=== PATIENT | male | born 1945 | race Caucasian/White ===

== ENCOUNTER 2016-11-01 14:52 | Observation (INO) | payer OTHER ==
[~2016-11-01] VITALS: Ht 180.3 cm; Wt 101.0 kg
[~2016-11-01 14:52] MED LIST: ACET-1311 PO; CARB200T PO; CLOP1TAB15 PO; COLC0.6T54 PO; DUTA0.5C PO; FENO145T26 PO; FERR1TAB61 PO; FLM4 PO; FRS/40 PO; FURO80TA63 PO; LISI-461 PO; MCRK20 PO; METO-217 PO; METO100T44 PO; MGNO400 PO; NRV5 PO; NTRSLP4 SL; PANT40TA PO; SPIR25TA PO
--- NOTE | 2016-11-01 15:44 | DIAGNOSTIC IMAGING REPORT ---
CHEST ONE VIEW PORTABLE CLINICAL HISTORY: sob dyspnea COMPARISON STUDY: 02/26/2016 FINDINGS: Mild increase in cardiac size. Chronic fullness the pulmonary vasculature. Potential developing infiltrate right base. IMPRESSION: Potential developing infiltrate right base. Mild cardia megaly. Electronically signed by: Rolando Liu M.D. 11/01/2016 3:41 PM Dictated Date/Time: 11/01/2016 3:40 PM
[2016-11-01] MEDS ORDERED: NTRGSL/4 UT (15:45)
[2016-11-01] MEDS ORDERED: MAGN400T6 PO (15:45)
[2016-11-01] MEDS ORDERED: ATOR-22 PO (15:45)
[2016-11-01] MEDS ORDERED: POTA20TA13 PO (15:45)
[2016-11-01] MEDS ORDERED: AMLO-110 PO (15:45)
[2016-11-01] MEDS ORDERED: CHOL100010 PO (15:45)
[2016-11-01] MEDS ORDERED: IRON1TAB11 PO (15:45)
[2016-11-01] MEDS ORDERED: PANT40TA PO (15:45)
[2016-11-01] MEDS ORDERED: LISI-461 PO (15:45)
[2016-11-01 16:16] LABS: BASO % 0.7 %; BASO ABS # 0.03 K/uL (0-0.2); COMPLETE YES; EOS % 2.2 %; HEMATOCRIT 38.7 % (42-52); IG% 0.2 %; LYMPH % 17.2 %; LYMPH ABS # 0.78 K/uL (1.2-3.4); MEAN CELL VOLUME 96.3 fL (80-100); MEAN CORPUSCULAR HEMOGLOBIN 31.3 pg (25-34); MEAN CORPUSCULAR HGB CONC 32.6 g/dl (32-36); MEAN PLATELET VOLUME 12.5 fL (7.4-10.4); MONO % 12.8 %; NEUT % 66.9 %; PLATELET COUNT 146 K/uL (130-400); RED BLOOD COUNT 4.02 M/uL (4.7-6.1); WHITE BLOOD COUNT 4.54 K/uL (4.8-10.8)
[2016-11-01 16:32] LABS: INR 1.2 (0.9-1.1); PROTHROMBIN TIME (PATIENT) 12.8 SECONDS (9.0-12.0)
[2016-11-01 16:56] LABS: ALB/GLOB RATIO 1.1 (0.9-2); BUN/CREATININE RATIO 17.1 (10-20); CALCIUM 8.5 mg/dl (8.5-10.1); CKMB/CK RATIO 2.1 (0-3.0); CREATININE 0.87 mg/dl (0.60-1.40); POTASSIUM 3.6 mmol/L (3.5-5.1)
--- NOTE | 2016-11-01 18:14 | EMERGENCY ROOM VISIT NOTE ---
History Report prepared by Jenni: Abdi Booth Under the Supervision of: Dr. Jacky Banerjee D.O. First contact with patient: 15:04 Chief Complaint: SHORTNESS OF BREATH Stated Complaint: SOB Nursing Triage Summary: Increased SOB. Patient states he has stopped taking his Lasix "It is a pain". Pt. was seen by Dr. Ayala and referred here today. History of Present Illness The patient is a 71 year old male who presents to the Emergency Room with complaints of worsening shortness of breath beginning several weeks ago. He notes he is unable to walk far distances without getting short of breath. He denies having any cough or pain with his shortness of breath, and reports only getting short of breath with exertion, not rest. The patient recently had a head cold about 2 to 3 weeks ago and his symptoms were resolved with 2 courses of antibiotics. He has had similar shortness of breath before, and had stents placed 4 years ago at [facility] which helped relieve his symptoms. He has been to this ER in the past for bleeding from taking Coumadin and Plavix. He still takes Plavix but no longer takes the Coumadin. He adds that he has a history of nerve damage in his left leg from a past fall. The patient follows with Dr. Ayala. Source of History: patient Onset: several weeks ago Position: other (lungs) Quality: other (shortness of breath) Timing: worsening Modifying Factors (Worsening): exertion Modifying Factors (Relieving): rest Associated Symptoms: No cough Review of Systems See HPI for pertinent positives & negatives. A total of 10 systems reviewed and were otherwise negative. Past Medical & Surgical Medical Problems: (1) Atrial fibrillation (2) Bimalleolar ankle fracture (3) BPH (benign prostatic hypertrophy) (4) Coronary artery disease (5) Dyslipidemia (6) Gout (7) History of peptic ulcer disease (8) Hypertension (9) Sleep apnea (10) Trigeminal neuralgia Surgical Problems: (1) Status post cardiac catheterization (2) Status post coronary artery stent placement (3) Status post total knee replacement Family History Bipolar disorder MOTHER Myocardial infarction FATHER Social History Smoking Status: Never Smoker Alcohol Use: none Drug Use: none Marital Status: Housing Status: lives with significant other Occupation Status: retired Current/Historical Medications Scheduled Amlodipine (Norvasc), 5 MG PO QAM Atorvastatin (Lipitor), 20 MG PO DAILY Carbamazepine (Tegretol), 200 MG PO QID Cholecalciferol (Vitamin D), 1,000 UNITS PO DAILY Clopidogrel (Plavix), 75 MG PO QAM Colchicine (Colchicine), 0.6 MG PO QAM Dutasteride (Avodart), 0.5 MG PO DAILY@1730 Fenofibrate (Tricor ), 145 MG PO QAM Furosemide (Lasix), 40 MG PO Q2D Furosemide (Lasix), 80 MG PO Q2D Iron-Vitamin C (Fe C Tab 100-250 mg), Unknown Dose PO BID Lisinopril (Lisinopril), 10 MG PO QAM Magnesium Oxide (Mag-Ox), 400 MG PO QAM Metoprolol Succ (Toprol Xl) (Toprol-Xl ), 100 MG PO DAILY Metoprolol Succinate (Toprol Xl), 50 MG PO DAILY Pantoprazole (Protonix), 40 MG PO BID Potassium Chloride Microencaps (Potassium Chloride Er), 20 MEQ PO DAILY Spironolactone (Aldactone), 12.5 MG PO QAM Tamsulosin HCl (Tamsulosin HCl), 0.4 MG PO HS Scheduled PRN Acetaminophen (Tylenol), 650 MG PO Q4 PRN for Pain Nitroglycerin (Nitrostat), 0.4 MG UT PRN PRN for Chest Pain Allergies Coded Allergies: No Known Allergies (Unverified , 11/01/16) Physical Exam Vital Signs Date Time Temp Pulse Resp B/P Pulse Ox O2 Delivery O2 Flow Rate FiO2 11/01/16 16:50 72 25 156/105 91 Room Air 11/01/16 15:28 72 11/01/16 15:25 Room Air 94 11/01/16 15:25 94 Room Air 11/01/16 14:53 67 24 188/97 97 Physical Exam CONSTITUTIONAL/VITAL SIGNS: Reviewed / noted above. GENERAL: Non-toxic in appearance. INTEGUMENTARY: Warm, dry, and [place]. HEAD: Normocephalic. EYES: without scleral icterus or trauma. ENT/OROPHARYNX: clear and moist. LYMPHADENOPATHY/NECK: Is supple without lymphadenopathy or meningismus. RESPIRATORY: Lungs clear and equal. CARDIOVASCULAR: Regular rate and rhythm. GI/ABDOMEN: Soft and nontender. No organomegaly or pulsatile mass. No rebound or guarding. Normal bowel sounds. EXTREMITIES: Pedal edema bilaterally. BACK: No CVA tenderness. NEUROLOGICAL: Intact without focal deficits. PSYCHIATRIC: normal affect. MUSCULOSKELETAL: Normally developed with good muscle tone. Medical Decision & Procedures ER Provider Diagnostic Interpretation: Radiology results as stated below per my review and radiologist interpretation: CHEST ONE VIEW PORTABLE FINDINGS: Mild increase in cardiac size. Chronic fullness the pulmonary vasculature. Potential developing infiltrate right base. IMPRESSION: Potential developing infiltrate right base. Mild cardia megaly. Electronically signed by: Rolando Liu M.D. 11/01/2016 3:41 PM Dictated Date/Time: 11/01/2016 3:40 PM Laboratory Results 11/01/16 15:48 Red Blood Count 4.02, Mean Corpuscular Volume 96.3, Mean Corpuscular Hemoglobin 31.3, Mean Corpuscular Hemoglobin Concent 32.6, Mean Platelet Volume 12.5, Neutrophils (%) (Auto) 66.9, Lymphocytes (%) (Auto) 17.2, Monocytes (%) (Auto) 12.8, Eosinophils (%) (Auto) 2.2, Basophils (%) (Auto) 0.7, Neutrophils # (Auto ) 3.04, Lymphocytes # (Auto) 0.78, Monocytes # (Auto) 0.58, Eosinophils # (Auto ) 0.10, Basophils # (Auto) 0.03 11/01/16 15:48 Test 11/01/16 15:48 White Blood Count 4.54 K/uL (4.8-10.8) Red Blood Count 4.02 M/uL (4.7-6.1) Hemoglobin 12.6 g/dL (14.0-18.0) Hematocrit 38.7 % (42-52) Mean Corpuscular Volume 96.3 fL (80-100) Mean Corpuscular Hemoglobin 31.3 pg (25-34) Mean Corpuscular Hemoglobin Concent 32.6 g/dl (32-36) Platelet Count 146 K/uL (130-400) Mean Platelet Volume 12.5 fL (7.4-10.4) Neutrophils (%) (Auto) 66.9 % Lymphocytes (%) (Auto) 17.2 % Monocytes (%) (Auto) 12.8 % Eosinophils (%) (Auto) 2.2 % Basophils (%) (Auto) 0.7 % Neutrophils # (Auto) 3.04 K/uL (1.4-6.5) Lymphocytes # (Auto) 0.78 K/uL (1.2-3.4) Monocytes # (Auto) 0.58 K/uL (0.11-0.59) Eosinophils # (Auto) 0.10 K/uL (0-0.5) Basophils # (Auto) 0.03 K/uL (0-0.2) RDW Standard Deviation 55.9 fL (36.4-46.3) RDW Coefficient of Variation 15.9 % (11.5-14.5) Immature Granulocyte % (Auto) 0.2 % Immature Granulocyte # (Auto) 0.01 K/uL (0.00-0.02) Prothrombin Time 12.8 SECONDS (9.0-12.0) Prothromb Time International Ratio 1.2 (0.9-1.1) Activated Partial Thromboplast Time 26.8 SECONDS (21.0-31.0) Partial Thromboplastin Ratio 1.0 Anion Gap 8.0 mmol/L (3-11) Est Creatinine Clear Calc Drug Dose 96.4 ml/min Estimated GFR () 99.2 Estimated GFR (Non- 85.6 BUN/Creatinine Ratio 17.1 (10-20) Calcium Level 8.5 mg/dl (8.5-10.1) Total Bilirubin 1.0 mg/dl (0.2-1) Aspartate Amino Transf (AST/SGOT) 28 U/L (15-37) Alanine Aminotransferase (ALT/SGPT) 23 U/L (12-78) Alkaline Phosphatase 38 U/L (45-117) Total Creatine Kinase 100 U/L (39-308) Creatine Kinase MB 2.1 ng/ml (0.5-3.6) Creatine Kinase MB Ratio 2.1 (0-3.0) Troponin I 0.031 ng/ml (0-0.045) Pro-B-Type Natriuretic Peptide 4484 pg/ml (0-900) Total Protein 6.6 gm/dl (6.4-8.2) Albumin 3.5 gm/dl (3.4-5.0) Globulin 3.1 gm/dl (2.5-4.0) Albumin/Globulin Ratio 1.1 (0.9-2) Laboratory results as stated above per my review. ECG Indication: SOB/dyspnea Rate (beats per minute): 78 Rhythm: atrial fibrillation Findings: ST depression (Inferior), T-wave inversion (Inferior) Comparison ECG Date: 02/26/16 Change: no significant change ED Course 1537: Previous medical records were reviewed. The patient was evaluated in room A10. A complete history and physical examination was performed. 1730: Discussed the patient's case with Veronika Alcantara PA-C. The patient will be evaluated for further treatment and disposition. Medical Decision the differential was considered includes acute myocardial infarction, acute coronary syndrome, myocarditis, pericarditis, pericardial effusions /tamponad, esophageal perforation, pulmonary embolism, pneumonia, pneumothorax, cardiomyopathy, congestive heart, anemia , COPD/asthma exacerbation. This is a 71-year-old male who presents to the ED with a chief complaint of shortness of breath for the past couple of months. The patient reports exertional dyspnea similar to prior symptoms that he had prior to a cardiac catheterization and stent placement 4 years ago. The patient recently has had some cough and cold symptoms and had 2 courses of antibiotics and now his cold symptoms have improved. He denies any other symptoms and is currently symptomatic. His vital signs are stable. He is not hypoxic or febrile. His physical exam was unremarkable. Chest x-ray reveals a possible small right lower lobe infiltrate. This is likely resolving as clinically his symptoms have improved with regards to his cold symptoms. CBC was unremarkable. Chemistry panel was unremarkable. Troponin was negative. BNP is 4484. EKG shows A. fib which is similar to previous EKGs. Because of the patient's anginal-like symptoms, the patient was seen by the hospitalist for further inpatient evaluation. He has not been treated for pneumonia as clinically he does not have pneumonia at this time. Consults Time Called: 1729 Consulting Physician: Veronika Alcantara PA-C, [facility] Returned Call: 1730 Discussed the patient's case with Kisha Dias PA-C. The patient will be evaluated for further treatment and disposition. Impression Primary Impression: Unstable angina Scribe Attestation The scribe's documentation has been prepared under my direction and personally reviewed by me in its entirety. I confirm that the note above accurately reflects all work, treatment, procedures, and medical decision making performed by me. Departure Information Dispostion Being Evaluated By Hospitalist Referrals Lucy,Ashvin F.JR,M.D.(JACOB) (PCP) Patient Instructions My [facility]
[2016-11-01] MEDS ORDERED: FURO40TA3 PO (18:28)
[2016-11-01] MEDS ORDERED: FERRTAB18 PO (18:28)
[2016-11-01] MEDS ORDERED: ACETAMINOPHEN 325 MG TAB PO PRN (18:30)
[2016-11-01] MEDS ORDERED: ONDANSETRON INJ 2 MG/ML 2 ML VIAL IV PRN (18:30)
[2016-11-01] MEDS ORDERED: NITROGLYCERIN 0.4 MG SL PER TAB CHARGE SL PRN (18:30)
[2016-11-01] MEDS ORDERED: HydrALAZINE HCL 20 MG/ML VIAL IV. STA (18:41)
[2016-11-01] MEDS ORDERED: IV FLUIDS COMPLETED PRN (18:45)
[2016-11-01] MEDS ORDERED: HydrALAZINE HCL 20 MG/ML VIAL ONE (18:53)
[2016-11-01] MEDS ORDERED: ASPIRIN 81 MG CHEW PO STA (18:56)
--- NOTE | 2016-11-01 19:12 | History and Physical ---
History & Physical Date & Time of Service: Nov 01, 2016 at 18:30 Chief Complaint: SOB Primary Care Physician: Ashvin Ayala M.D.(JACOB) History of Present Illness Source: patient This is a 71 y/o male with PMHx of CAD s/p stents, PAF, HTN, Dyslipidemia and other problems as outlined below who presents to the ED c/o worsening SOB x 6-8 months. Pt reports that 6-8 months ago he developed worsening SOB with exertion. Just walking across his driveway to his car is a chore. He denies any pain with his breathing and denies SOB at rest or with laying flat. Pt reports he had a head cold and recently completed 2 courses of antibiotics. He feels much better after taking the antibiotics however the SOB persists. Pt has a history of similar sxs 4 years at which time he required cardiac cath with 4 stents placed ([facility]). Pt is concerned that this SOB is related to his heart again. Pt takes all of his medications as prescribed except for his Lasix which he admits he rarely takes because it "is a pain". He last took his Lasix about 3 weeks ago. Pt denies fever/chills, diaphoresis, chest pain, palpitations, cough, wheezing, abd pain, N/V, bowel or bladder issues, worsening LE edema, calf pain, lightheadedness/dizziness. In the ED, BP is elevated to 221/135. Pt is afebrile with no leukocytosis. Initial troponin negative and EKG no acute ischemic change. CXR developing infiltrate R base. Pt is stable and will be admitted for further evaluation and treatment. Past Medical/Surgical History Medical Problems: (1) Atrial fibrillation Status: Chronic (2) Bimalleolar ankle fracture Status: Resolved (3) BPH (benign prostatic hypertrophy) Status: Chronic (4) Coronary artery disease Permanent Comment: stenoses LAD and ramus intermedius, s/p PCI Status: Chronic (5) Dyslipidemia Status: Chronic (6) GI bleed Status: Resolved (7) Gout Status: Chronic (8) History of peptic ulcer disease Status: Chronic (9) Hypertension Status: Chronic (10) Sleep apnea Status: Chronic (11) Trigeminal neuralgia Status: Chronic Surgical Problems: (1) Status post cardiac catheterization Status: Chronic (2) Status post coronary artery stent placement Status: Chronic (3) Status post total knee replacement Status: Chronic Family History Bipolar disorder MOTHER Myocardial infarction FATHER Social History Smoking Status: Never Smoker Alcohol Use: none Drug Use: none Marital Status: Housing status: lives with family Occupational Status: retired Allergies Coded Allergies: No Known Allergies (Unverified , 11/01/16) Home Medications Scheduled Amlodipine (Norvasc), 5 MG PO QAM Atorvastatin (Lipitor), 20 MG PO DAILY Carbamazepine (Tegretol), 200 MG PO QID Cholecalciferol (Vitamin D), 1,000 UNITS PO DAILY Clopidogrel (Plavix), 75 MG PO QAM Colchicine (Colchicine), 0.6 MG PO QAM Dutasteride (Avodart), 0.5 MG PO DAILY@1730 Fenofibrate (Tricor ), 145 MG PO QAM Furosemide (Lasix), 40 MG PO DAILY Iron-Vitamin C (Vitron-C), 1 TAB PO BID Lisinopril (Lisinopril), 10 MG PO QAM Magnesium Oxide (Mag-Ox), 400 MG PO QAM Metoprolol Succ (Toprol Xl) (Toprol-Xl ), 100 MG PO DAILY Metoprolol Succinate (Toprol Xl), 50 MG PO DAILY Pantoprazole (Protonix), 40 MG PO BID Potassium Chloride Microencaps (Potassium Chloride Er), 20 MEQ PO DAILY Spironolactone (Aldactone), 12.5 MG PO QAM Tamsulosin HCl (Tamsulosin HCl), 0.4 MG PO HS Scheduled PRN Acetaminophen (Tylenol), 650 MG PO Q4 PRN for Pain Nitroglycerin (Nitrostat), 0.4 MG UT PRN PRN for Chest Pain Review of Systems Constitutional: No chills, No fatigue, No fever, No sweats, No weakness Eyes: No worsening of vision ENT: No hearing loss Respiratory: + dyspnea on exertion, + shortness of breath, No cough, No dyspnea at rest, No sputum, No wheezing Cardiovascular: No chest pain, No claudication, No edema Abdomen: No constipation, No diarrhea, No nausea, No pain, No vomiting Musculoskeletal: No calf pain Genitourinary - Male: No dysuria Neurologic: No weakness Psychiatric: No depression symptoms Endocrine: No fatigue Hematologic / Lymphatic: No abnormal bleeding/bruising Integumentary: No new/changing skin lesions Physical Exam Vital Signs Date Time Temp Pulse Resp B/P Pulse Ox O2 Delivery O2 Flow Rate FiO2 11/01/16 18:27 84 16 189/120 93 Room Air 11/01/16 16:50 72 25 156/105 91 Room Air 11/01/16 15:28 72 11/01/16 15:25 Room Air 94 11/01/16 15:25 94 Room Air 11/01/16 14:53 67 24 188/97 97 General Appearance: WD/WN, no apparent distress, + pertinent finding (Pt is sitting up in bed comfortably; notable conversational dyspnea ) Head: normocephalic, atraumatic Eyes: normal inspection ENT: hearing grossly normal Neck: supple Respiratory/Chest: chest non-tender, lungs clear, normal breath sounds, no respiratory distress, + pertinent finding (no crackles or wheezing noted) Cardiovascular: no murmur, + irregularly irregular, + pertinent finding (+ JVD) Abdomen/GI: normal bowel sounds, non tender, soft Back: normal inspection Extremities/Musculoskelatal: normal inspection, no calf tenderness, + pedal edema, + swelling (2+ pitting edema bilat) Neurologic/Psych: alert, normal mood/affect, oriented x 3 Skin: normal color, warm/dry Diagnostics Laboratory Results Results Past 24 Hours Test 11/01/16 15:48 Range/Units White Blood Count 4.54 4.8-10.8 K/uL Red Blood Count 4.02 4.7-6.1 M/uL Hemoglobin 12.6 14.0-18.0 g/dL Hematocrit 38.7 42-52 % Mean Corpuscular Volume 96.3 80-100 fL Mean Corpuscular Hemoglobin 31.3 25-34 pg Mean Corpuscular Hemoglobin Concent 32.6 32-36 g/dl Platelet Count 146 130-400 K/uL Mean Platelet Volume 12.5 7.4-10.4 fL Neutrophils (%) (Auto) 66.9 % Lymphocytes (%) (Auto) 17.2 % Monocytes (%) (Auto) 12.8 % Eosinophils (%) (Auto) 2.2 % Basophils (%) (Auto) 0.7 % Neutrophils # (Auto) 3.04 1.4-6.5 K/uL Lymphocytes # (Auto) 0.78 1.2-3.4 K/uL Monocytes # (Auto) 0.58 0.11-0.59 K/uL Eosinophils # (Auto) 0.10 0-0.5 K/uL Basophils # (Auto) 0.03 0-0.2 K/uL RDW Standard Deviation 55.9 36.4-46.3 fL RDW Coefficient of Variation 15.9 11.5-14.5 % Immature Granulocyte % (Auto) 0.2 % Immature Granulocyte # (Auto) 0.01 0.00-0.02 K/uL Prothrombin Time 12.8 9.0-12.0 SECONDS Prothromb Time International Ratio 1.2 0.9-1.1 Activated Partial Thromboplast Time 26.8 21.0-31.0 SECONDS Partial Thromboplastin Ratio 1.0 Sodium Level 145 136-145 mmol/L Potassium Level 3.6 3.5-5.1 mmol/L Chloride Level 110 98-107 mmol/L Carbon Dioxide Level 27 21-32 mmol/L Anion Gap 8.0 3-11 mmol/L Blood Urea Nitrogen 15 7-18 mg/dl Creatinine 0.87 0.60-1.40 mg/dl Est Creatinine Clear Calc Drug Dose 96.4 ml/min Estimated GFR () 99.2 Estimated GFR (Non- 85.6 BUN/Creatinine Ratio 17.1 10-20 Random Glucose 89 70-99 mg/dl Calcium Level 8.5 8.5-10.1 mg/dl Total Bilirubin 1.0 0.2-1 mg/dl Aspartate Amino Transf (AST/SGOT) 28 15-37 U/L Alanine Aminotransferase (ALT/SGPT) 23 12-78 U/L Alkaline Phosphatase 38 45-117 U/L Total Creatine Kinase 100 39-308 U/L Creatine Kinase MB 2.1 0.5-3.6 ng/ml Creatine Kinase MB Ratio 2.1 0-3.0 Troponin I 0.031 0-0.045 ng/ml Pro-B-Type Natriuretic Peptide 4484 0-900 pg/ml Total Protein 6.6 6.4-8.2 gm/dl Albumin 3.5 3.4-5.0 gm/dl Globulin 3.1 2.5-4.0 gm/dl Albumin/Globulin Ratio 1.1 0.9-2 Microbiology Results 11/01/16 Blood Culture, Received Pending 11/01/16 Blood Culture, Received Pending Diagnostic Radiology CXR IMPRESSION: Potential developing infiltrate right base. Mild cardia megaly. EKG EKG: Afib at 78 bpm with T wave inversion in inferior leads; when compared to EKG from 02/26/16, T wave inversion is unchanged in inferior leads and no longer evident in anterior leads Impression Assessment and Plan EXERTIONAL DYSPNEA R/O ACS VS. ACUTE CHF EXACERBATION pt presents c/o severely months of worsening exertional dyspnea; h/o CAD s/p stent placement in 2012 -observation status to telemetry -sxs may be related to CHF exacerbation (non-compliant with Lasix) vs. unstable angina -RFs include CAD s/p stents placement in 2012, HTN, Dyslipidemia, sex and age -EKG shows no acute ischemic changes;repeat EKG PRN chest pain and in AM -Initial troponin is negative; continue to monitor with serial cardiac enzymes q6h -obtain echo to r/o cardiac wall motion abnormalities -give one dose Lasix 40mg now and continue home dose PO Lasix tomorrow -start ASA and high-dose statin -cont Plavix and BB -consult cardiology, Dr. Jordan-pending input -pt is currently chest pain free -continue to monitor HYPERTENSIVE URGENCY -BP 221/135 -give hydralazine now -cont Lisinopril, Metoprolol, Norvasc, Spironolactone and Lasix -monitor PAF -EKG:rate controlled Afib -no longer on Coumadin due to h/o GI bleed -cont metoprolol -monitor BPH -stable -cont Flomax and Avodart DYSLIPIDEMIA -cont statin DVT PROPHYLAXIS -subq heparin CODE STATUS -FULL CODE per discussion with patient upon admission DISPO Observation status until further workup is complete. Pt seen in collaboration with Dr. Renteria. Please see her addendum for further details. Thanks! -Of note: patient will be followed by Dr. Rios starting tomorrow AM. I have seen and examined the patient and agree with the note above with the following exceptions. He has clear hypertensive urgency with noted uncontrolled BP at baseline (160-180 systolic per his reports) which may be contributing to symptoms. However, I agree with ruling out ACS in this patient with CAD with stents and a h/o in-stent stenosis in the past. No clear contraindication to dual antiplatelet therapy, however, noted to have had GI bleed and was taken off coumadin in the past (stroke risk for afib), so will cont with Plavix and ASA at this time. Lipitor dose increased to 80mg for pleiotropic effects including plaque stabilization in acute setting. Pt is also volume overloaded on exam with LE swelling (I did not appreciate edema on my exam but legs did appear swollen), +JVD and a weight trend up 10 lbs from just a few months ago. He had a noted noncompliance with Lasix and states that he "doesn't make an effort to avoid salt." It is also possible that fluid overload, in addition to causing some SOB from a heart failure standpoint, may also be contributing to bowel edema causing poor absorption of PO BP meds. Lasix 40 IV given once now and continued daily along with hydralazine and IV hydralazine as needed. I did increase his lisinopril to 40mg PO daily, also. Appreciate Cardiology recommendations in am. Cardiac enzymes are negative so far, pt not complaining of pain and EKG is non-ischemic. TTE in am. Chayo Renteria, DO Hospitalist Level of Care Telemetry Resuscitation Status FULL RESUSCITATION VTE Prophylaxis VTE Risk Assessment Done? Y/N: Yes Risk Level: Moderate Given or contraindicated: Enoxaparin (Lovenox)SQ
[2016-11-01] MEDS ORDERED: ATORVASTATIN 40 MG TAB PO ONE (19:45)
[2016-11-01] MEDS ORDERED: FUROSEMIDE INJ 40 MG in SYRINGE 0 ML IV STA (20:18)
[2016-11-01 20:25] VITALS: BP 161/90; PULSE 88; TEMP 36.5; O2SAT 95; Ht 180.3 cm; Wt 101.0 kg
[2016-11-01] MEDS: PANTOprazole SOD 40 MG TAB PO SCH (20:36)
[2016-11-01] MEDS: CARBAMAZEPINE 200 MG TAB PO SCH (20:36)
[2016-11-01] MEDS: TAMSULOSIN HCL 0.4 MG CAP PO SCH (20:36)
[2016-11-01 21:37] VITALS: BP 171/80
[2016-11-01] MEDS ORDERED: HEPARIN SOD 5000 UNIT/0.5 ML CARP SQ SCH (22:00)
[2016-11-01 22:11] LABS: URINE APPEARANCE CLEAR (CLEAR); URINE BILIRUBIN NEG (NEG); URINE COLOR YELLOW; URINE NITRITE NEG (NEG); URINE PH 6.5 (4.5-7.5); URINE SPECIFIC GRAVITY 1.007 (1.000-1.030); UROBILINOGEN NEG (NEG)
[2016-11-01 22:17] LABS: MANUAL MICROSCOPIC REQUIRED? NO; REVIEW REQ? NO
[2016-11-01 23:07] VITALS: BP 154/74; PULSE 69; TEMP 36.7; O2SAT 93
[2016-11-02] VITALS (10 sets, daily range): BP systolic 143–173; BP diastolic 66–79; PULSE 65–72; TEMP 36.3–36.8; O2SAT 90–95
[2016-11-02 04:18] LABS: HEMATOCRIT 37.1 % (42-52); MEAN CELL VOLUME 95.6 fL (80-100); MEAN CORPUSCULAR HEMOGLOBIN 30.7 pg (25-34); MEAN CORPUSCULAR HGB CONC 32.1 g/dl (32-36); MEAN PLATELET VOLUME 11.8 fL (7.4-10.4); PLATELET COUNT 121 K/uL (130-400); RED BLOOD COUNT 3.88 M/uL (4.7-6.1); WHITE BLOOD COUNT 4.92 K/uL (4.8-10.8)
[2016-11-02 04:35] LABS: BLOOD UREA NITROGEN 14 mg/dl (7-18); BUN/CREATININE RATIO 17.8 (10-20); CALCIUM 8.4 mg/dl (8.5-10.1); CARBON DIOXIDE 32 mmol/L (21-32); CHLORIDE 107 mmol/L (98-107); CREATININE 0.78 mg/dl (0.60-1.40); GLUCOSE 90 mg/dl (70-99); POTASSIUM 3.6 mmol/L (3.5-5.1); SODIUM 144 mmol/L (136-145)
[2016-11-02] MEDS: FENOFIBRATE 145 MG TAB PO SCH (08:18)
[2016-11-02] MEDS: LISINOPRIL 40 MG TAB PO SCH (08:19)
[2016-11-02] MEDS: METOPROLOL SUCC 50MG EXT REL TAB PO SCH (08:19)
[2016-11-02] MEDS: ASPIRIN 81 MG ECTAB PO SCH (08:20)
[2016-11-02] MEDS: CEROVITE ADV FORMULA TAB PO SCH (08:20)
[2016-11-02] MEDS: CLOPIDOGREL BISULFATE 75 MG TAB PO SCH (08:20)
[2016-11-02] MEDS: AMLODIPINE BESYLATE 5 MG TAB PO SCH (08:20)
[2016-11-02] MEDS: CARBAMAZEPINE 200 MG TAB PO SCH ×4 (08:21→20:33)
[2016-11-02] MEDS: PANTOprazole SOD 40 MG TAB PO SCH ×2 (08:22→20:33)
[2016-11-02] MEDS: COLCHICINE 0.6 MG TAB PO SCH (08:22)
[2016-11-02] MEDS: CHOLECALCIFEROL 1000 INTER.UNIT TAB PO SCH (08:22)
[2016-11-02] MEDS: SPIRONOLACTONE 25 MG TAB PO SCH (08:22)
[2016-11-02] MEDS ORDERED: CEROVITE ADV FORMULA TAB PO SCH (09:00)
[2016-11-02] MEDS ORDERED: ATORVASTATIN 20 MG TAB PO SCH (09:00)
[2016-11-02] MEDS ORDERED: METOPROLOL SUCC 50MG EXT REL TAB PO SCH (09:00)
[2016-11-02] MEDS ORDERED: FUROSEMIDE INJ 40 MG in SYRINGE 0 ML IV SCH (09:00)
[2016-11-02] MEDS ORDERED: FUROSEMIDE 40 MG TAB PO SCH (09:00)
[2016-11-02] MEDS ORDERED: ENOXAPARIN 40 MG/0.4 ML SYR SQ SCH (09:00)
[2016-11-02] MEDS ORDERED: MAGNESIUM OXIDE 400 MG TAB PO SCH (09:00)
[2016-11-02] MEDS ORDERED: POTASSIUM CHLORIDE 20 MEQ TABCR PO SCH (09:00)
[2016-11-02] MEDS ORDERED: LISINOPRIL 10 MG TAB PO SCH ×2 (09:00)
--- NOTE | 2016-11-02 11:20 | CARDIOLOGY CONSULTATION ---
DATE OF CONSULTATION: 11/02/2016 This is a consultation for [facility]. REASON FOR CONSULTATION: Shortness of breath. HISTORY: This patient is a 71-year-old male who follows with Dr. Chaudhary and Rolando Pool PA-C, through our clinic. He has a history of coronary artery disease with previous coronary interventions. These interventions were done in [place]. He had stents placed in the left anterior descending and ramus intermediate artery. In 12/2014, he had a repeat cardiac catheterization that showed in-stent restenosis of the left anterior descending artery and received a drug-eluting stent. He has chronic atrial fibrillation and had been on a combination of aspirin, Plavix and Coumadin which resulted in GI bleeding. A workup by the GI service including an EGD and colonoscopy was unremarkable. The patient also had a fall, sustaining a large contusion on his left hip. At that point, the Coumadin was completely discontinued and he is not a candidate for anticoagulation. He has had other multiple falls which have resulted in trauma to his left ankle and an ankle fracture. The patient had been medically stable and was last seen in our clinic in 04/2016. Unfortunately, the patient does not like to take his Lasix because of incontinence. The patient stopped it several months ago and then began to have progressive shortness of breath which has worsened recently. The patient discussed with his primary care physician his shortness of breath and the option was given for him to have an outpatient evaluation through the cardiology clinic or to be admitted to the hospital. The patient chose hospital admission. Today, the patient is feeling much better. With intravenous diuretics given last night, he had a large diuresis. The patient states that he could not walk down the ann without becoming short of breath and now he feels much improved. He has noted lower extremity edema to the knees bilaterally. He has had no chest pain, just dyspnea with activity. He denies orthopnea. He has had no dizziness or lightheadedness. ALLERGIES: No known medical allergies. PAST MEDICAL HISTORY: As outlined above, the patient has ischemic heart disease with prior coronary stents. He also has a history of hypertension, dyslipidemia, and trigeminal neuralgia. I believe he has benign prostatic hypertrophy with problems related to incontinence. SOCIAL HISTORY: He lives independently. He is a nonsmoker. FAMILY MEDICAL HISTORY: Noncontributory. REVIEW OF SYSTEMS: A 10-point review of systems is negative except for the history of chief complaint. PHYSICAL EXAMINATION: GENERAL: He is alert and oriented, no acute distress. VITAL SIGNS: Blood pressure is 173/79, pulse is regular at 72, he is afebrile. HEENT: He is normocephalic. Pupils are equal and reactive to light. Extraocular muscles are intact bilaterally. NECK: The neck veins are flat. Carotids have good upstrokes bilaterally without bruits. Thyroid is nonpalpable. RESPIRATORY: Breath sounds equal bilaterally. There are no rales or rhonchi. CARDIOVASCULAR: Heart has a regular rhythm. There is an S3 present. No cardiac rubs or murmurs. GASTROINTESTINAL: Abdomen is soft, nontender, without organomegaly. EXTREMITIES: Have edema to the mid calves bilaterally. NEUROLOGIC: Grossly intact. SKIN: Warm to touch. LYMPH NODES: Negative to palpation. LABORATORY DATA: Cardiac markers are negative. Hemoglobin is 11.3. Creatinine is 0.78. Potassium is 3.6. IMPRESSION: 1. Congestive heart failure. 2. Ischemic heart disease with prior intracoronary stents within the left anterior descending artery and ramus artery performed in [place]. RECOMMENDATIONS: As outlined above, the patient has had a marked improvement in his symptoms with diuresis and I believe that if we continue to diurese him to a dry weight, he will feel much better. He obviously has congestive heart failure which may be multifactorial including not taking his diuretics at home due to incontinence. I will order an echocardiogram to evaluate his LV function. We will also increase his diuretics and follow him clinically. Further evaluation and treatment following the above. Thank you.
--- NOTE | 2016-11-02 16:58 | Progress Note ---
Medicine Progress Note Date & Time of Visit: Nov 02, 2016 at 16:47. Subjective Patient seen and examined. Feels that his breathing has improved. Plans to take a walk with his later today. present at bedside and also feels that his breathing looks more comfortable. Objective Last 8 Hrs Date Time Temp Pulse Resp B/P Pulse Ox O2 Delivery O2 Flow Rate FiO2 11/02/16 14:56 36.8 65 19 143/77 90 Room Air 11/02/16 12:00 94 Room Air 94 11/02/16 11:10 36.8 68 18 171/73 92 Room Air Physical Exam: General-awake; alert; NAD Eyes-EOMI; no scleral icterus Neck-no stridor; trachea midline Lungs-faint basilar crackles Heart-RRR Abdomen-soft; NTND; nBS [id number]-5-4+ bilateral LE edema Neuro-no focal deficits Laboratory Results: Last 24 Hours Test 11/01/16 21:40 11/01/16 22:00 11/01/16 22:10 11/02/16 04:00 Urine Color YELLOW Urine Appearance CLEAR Urine pH 6.5 Urine Specific [place] 1.007 Urine Protein NEG Urine Glucose (UA) NEG Urine Ketones NEG Urine Occult Blood NEG Urine Nitrite NEG Urine Bilirubin NEG Urine Urobilinogen NEG Urine Leukocyte Esterase TRACE Urine WBC (Auto) 0 /hpf Urine RBC (Auto) 0-4 /hpf Urine Hyaline Casts (Auto) 0 /lpf Urine Epithelial Cells (Auto) 5-10 /lpf Urine Bacteria (Auto) NEG Creatine Kinase MB Ratio Creatine Kinase MB 1.8 ng/ml Troponin I 0.042 ng/ml Test 11/02/16 04:05 White Blood Count 4.92 K/uL Red Blood Count 3.88 M/uL Hemoglobin 11.9 g/dL Hematocrit 37.1 % Mean Corpuscular Volume 95.6 fL Mean Corpuscular Hemoglobin 30.7 pg Mean Corpuscular Hemoglobin Concent 32.1 g/dl RDW Standard Deviation 55.7 fL RDW Coefficient of Variation 16.0 % Platelet Count 121 K/uL Mean Platelet Volume 11.8 fL Sodium Level 144 mmol/L Potassium Level 3.6 mmol/L Chloride Level 107 mmol/L Carbon Dioxide Level 32 mmol/L Anion Gap 5.0 mmol/L Blood Urea Nitrogen 14 mg/dl Creatinine 0.78 mg/dl Est Creatinine Clear Calc Drug Dose 106.3 ml/min Estimated GFR () 103.8 Estimated GFR (Non- 89.6 BUN/Creatinine Ratio 17.8 Random Glucose 90 mg/dl Calcium Level 8.4 mg/dl Creatine Kinase MB 1.6 ng/ml Troponin I 0.038 ng/ml Thyroid Stimulating Hormone (TSH) 3.260 uIu/ml Assessment & Plan ACUTE CHF EXACERBATION DUE TO MEDICATION NONCOMPLIANCE -EKG showed no acute ischemic changes -cardiac enzymes negative -echo pending -diuresis with IV Lasix -continue ASA and atorvastatin -cont Plavix and metoprolol -consulted cardiology HYPERTENSIVE URGENCY -BP 221/135 on admission -improved -cont Lisinopril, Metoprolol, Norvasc, Spironolactone and Lasix PAF -no longer on Coumadin due to h/o GI bleed -cont metoprolol BPH -stable -cont Flomax and Avodart DVT PROPHYLAXIS -subq heparin CODE STATUS -FULL CODE Consultants: Cardiology Current Inpatient Medications: Current Inpatient Medications Medications (Trade) Dose Ordered Sig/Elsi Route Start Time Stop Time Status Last Admin Dose Admin Acetaminophen (Tylenol Tab) 650 mg Q4H PRN PO 11/01/16 18:30 12/01/16 18:29 Ondansetron HCl (Zofran Inj) 4 mg Q6H PRN IV 11/01/16 18:30 12/01/16 18:29 Nitroglycerin (Nitrostat Tab) 0.4 mg UD PRN SL 11/01/16 18:30 12/01/16 18:29 Amlodipine Besylate (Norvasc Tab) 5 mg QAM PO 11/02/16 09:00 12/02/16 08:59 11/02/16 08:20 5 MG Carbamazepine (Tegretol Tab) 200 mg QID PO 11/01/16 21:00 12/01/16 20:59 11/02/16 12:46 200 MG Cholecalciferol (Vitamin D Tab) 1,000 inter.unit DAILY PO 11/02/16 09:00 12/02/16 08:59 11/02/16 08:22 1,000 INTER.UNIT Clopidogrel Bisulfate (plAVix TAB) 75 mg QAM PO 11/02/16 09:00 12/02/16 08:59 11/02/16 08:20 75 MG Colchicine (Colchicine Tab) 0.6 mg QAM PO 11/02/16 09:00 12/02/16 08:59 11/02/16 08:22 0.6 MG Fenofibrate (Tricor Tab) 145 mg QAM PO 11/02/16 09:00 12/02/16 08:59 11/02/16 08:18 145 MG Magnesium Oxide (Mag-Ox Tab) 400 mg QAM PO 11/02/16 09:00 12/02/16 08:59 11/02/16 08:22 400 MG Metoprolol Succinate (Toprol Xl Tab) 150 mg DAILY PO 11/02/16 09:00 12/02/16 08:59 11/02/16 08:19 150 MG Pantoprazole Sodium (Protonix Tab) 40 mg BID PO 11/01/16 21:00 12/01/16 20:59 11/02/16 08:22 40 MG Spironolactone (Aldactone Tab) 12.5 mg QAM PO 11/02/16 09:00 12/02/16 08:59 11/02/16 08:22 12.5 MG Tamsulosin HCl (Flomax Cap) 0.4 mg HS PO 11/01/16 21:00 12/01/16 20:59 11/01/16 20:36 0.4 MG Aspirin (Ecotrin Tab) 81 mg QAM PO 11/02/16 09:00 12/02/16 08:59 11/02/16 08:20 81 MG Miscellaneous (Iv Fluids Completed) 1 ea PRN PRN N/A 11/01/16 18:45 11/01/17 18:44 Miscellaneous Information (Order Awaiting Action) 1 ea QS N/A 11/02/16 00:00 12/02/16 00:00 Multivitamins/ Minerals (Multivitamin W/ Minerals Tab) 1 tab QAM PO 11/02/16 09:00 12/02/16 08:59 11/02/16 08:20 1 TAB Atorvastatin Calcium (Lipitor Tab) 80 mg HS PO 11/02/16 21:00 12/02/16 20:59 Lisinopril (Zestril Tab) 40 mg QAM PO 11/02/16 09:00 12/02/16 08:59 11/02/16 08:19 40 MG Enoxaparin Sodium 40 mg 40 mg QAM SQ 11/02/16 09:00 12/02/16 08:59 11/02/16 08:23 40 MG Furosemide/Syringe (Lasix Inj/ Syringe) 4 ml @ 4 mls/min BID@0600,1800 IV 11/02/16 18:00 12/02/16 17:59 Potassium Chloride (Klor-Con Tab) 20 meq BIDM PO 11/02/16 16:45 12/02/16 16:44
[2016-11-02] MEDS: POTASSIUM CHLORIDE 20 MEQ TABCR PO SCH (17:10)
--- NOTE | 2016-11-02 17:21 | ECHOCARDIOGRAM REPORT ---
*NOTICE TO RECEIVING REPUBLICAN AGENCY This information is strictly Confidential and protected under [place] law. [place] law prohibits you from making any further disclosure of this information unless further disclosure is expressly permitted by the written consent of the person to whom it pertains or is authorized by law. A general authorization for the release of medical or other information is not sufficient for this purpose. Hospital accepts no responsibility if the information is made available to any other person, INCLUDING THE PATIENT. Interpretation Summary * Name: ASHVIN TIWARI JR Study Date: 11/02/2016 06:41 AM BP: 151/74 mmHg * Patient Location: [facility] HR: 68 * : 1945 (M/d/yyyy) Gender: Male Height: 71 in * Age: 71 yrs Ethnicity: CA Weight: 247 lb * Ordering Physician: Veronika Alcantara * Referring Physician: Ashvin Ayala M.D.(JACOB) * Performed By: Judy Murcia RDCS * * Reason For Study: SOB * BSA: 2.3 m2 * -- Conclusions -- * The left ventricle is normal in size. * Left ventricular systolic function is normal. * Ejection Fraction = 65-70%. * The right ventricle is moderately dilated. * The right ventricular systolic function is moderately reduced. * The left atrium is severely dilated. * The right atrium is severely dilated. * The mitral regurgitant jet is eccentrically directed. * There is mild to moderate mitral regurgitation. * There is mild to moderate tricuspid regurgitation. * Pulmonary hypertension is present the with estimated pulmonary artery pressure of 65 mm Hg. Procedure Details * A complete two-dimensional transthoracic echocardiogram was performed (2D, M-mode, Doppler and color flow Doppler). Left Ventricle * The left ventricle is normal in size. * There is normal left ventricular wall thickness. * Ejection Fraction = 65-70%. * Left ventricular systolic function is normal. * The left ventricular wall motion is normal. Right Ventricle * The right ventricle is moderately dilated. * The right ventricular systolic function is moderately reduced. Atria * The left atrium is severely dilated. * The right atrium is severely dilated. * The interatrial septum is intact with no evidence for an atrial septal defect. Mitral Valve * The mitral valve leaflets appear thickened, but open well. * There is mild to moderate mitral regurgitation. * The mitral regurgitant jet is eccentrically directed. Tricuspid Valve * The tricuspid valve is not well visualized, but is grossly normal. * There is mild to moderate tricuspid regurgitation. Aortic Valve * The aortic valve is tricuspid. The leaflet thickness if normal. There is no aortic stenosis, and no significant insufficiency. * Aortic valve sclerosis mild, without significant aortic valvular stenosis. * There is no significant aortic regurgitation. Pulmonic Valve * The pulmonic valve is not well visualized. * Trace pulmonic valvular regurgitation. Great Vessels * The inferior vena cava is moderately dilated. * Pulmonary hypertension is present the with estimated pulmonary artery pressure of 65 mm Hg. MMode 2D Measurements and Calculations IVSd 1.3 cm LVIDd 4.2 cm LVIDs 2.8 cm LVPWd 1.6 cm IVS/LVPW 0.85 FS 34.8 % EDV(Teich) 79.5 ml ESV(Teich) 28.3 ml EF(Teich) 64.4 % EDV(cubed) 75.2 ml ESV(cubed) 20.8 ml EF(cubed) 72.3 % LV mass(C)d 243.0 grams LV mass(C)dI 105.3 grams/m\S\2 CO(Teich) 3.4 l/min CI(Teich) 1.5 l/min/m\S\2 SV(Teich) 51.2 ml SI(Teich) 22.2 ml/m\S\2 CO(cubed) 3.6 l/min CI(cubed) 1.6 l/min/m\S\2 SV(cubed) 54.4 ml SI(cubed) 23.6 ml/m\S\2 Ao root diam 3.2 cm Ao root area 8.2 cm\S\2 ACS 2.0 cm LA dimension 4.0 cm asc Aorta Diam 3.3 cm LA/Ao 1.2 LVOT diam 2.0 cm LVOT area 3.0 cm\S\2 LVAd ap4 26.6 cm\S\2 LVLd ap4 7.6 cm EDV(MOD-sp4) 77.1 ml LVAs ap4 13.0 cm\S\2 LVLs ap4 6.1 cm ESV(MOD-sp4) 27.5 ml EF(MOD-sp4) 64.3 % LVAd ap2 29.5 cm\S\2 LVLd ap2 8.2 cm EDV(MOD-sp2) 88.0 ml LVAs ap2 13.6 cm\S\2 LVLs ap2 6.3 cm ESV(MOD-sp2) 25.4 ml EF(MOD-sp2) 71.1 % CO(MOD-sp4) 3.3 l/min CI(MOD-sp4) 1.4 l/min/m\S\2 SV(MOD-sp4) 49.6 ml SI(MOD-sp4) 21.5 ml/m\S\2 CO(MOD-sp2) 4.2 l/min CI(MOD-sp2) 1.8 l/min/m\S\2 SV(MOD-sp2) 62.6 ml SI(MOD-sp2) 27.1 ml/m\S\2 Doppler Measurements and Calculations MV E max adrián 117.9 cm/sec MV dec time 0.19 sec Ao V2 max 128.6 cm/sec Ao max PG 6.6 mmHg Ao max PG (full) 3.4 mmHg VIKTORIA(V,A) 2.1 cm\S\2 VIKTORIA(V,D) 2.1 cm\S\2 AI max adrián 252.8 cm/sec AI max PG 25.6 mmHg AI dec slope 94.2 cm/sec\S\2 AI P1/2t 785.7 msec LV V1 max PG 3.2 mmHg LV V1 max 89.2 cm/sec MR max adrián 558.2 cm/sec MR max PG 124.6 mmHg MR mean adrián 406.1 cm/sec MR mean PG 74.7 mmHg MR VTI 167.3 cm PA V2 max 67.9 cm/sec PA max PG 1.8 mmHg PA acc slope 626.2 cm/sec\S\2 PA acc time 0.08 sec PI max adrián 143.5 cm/sec PI max PG 8.2 mmHg PI dec slope 153.7 cm/sec\S\2 PI P1/2t 273.5 msec TR max adrián 384.1 cm/sec PA pr(Accel) 44.1 mmHg
[2016-11-02] MEDS ORDERED: NON-FORMULARY MEDICATION (Dutasteride (Avodart) 0.5 MG) PO SCH (17:30)
[2016-11-02] MEDS: FUROSEMIDE INJ 40 MG in SYRINGE 0 ML IV SCH (18:18)
[2016-11-02] MEDS: TAMSULOSIN HCL 0.4 MG CAP PO SCH (20:33)
[2016-11-02] MEDS ORDERED: ATORVASTATIN 40 MG TAB PO SCH (21:00)
[2016-11-03] VITALS (7 sets, daily range): BP systolic 121–154; BP diastolic 69–86; PULSE 63–106; TEMP 36.6–36.9; O2SAT 90–94
[2016-11-03] MEDS: FUROSEMIDE INJ 40 MG in SYRINGE 0 ML IV SCH (05:41)
[2016-11-03] MEDS ORDERED: HEPARIN SOD 5000 UNIT/0.5 ML CARP SQ SCH (06:00)
[2016-11-03 06:27] LABS: HEMATOCRIT 37.6 % (42-52); MEAN CELL VOLUME 95.7 fL (80-100); MEAN CORPUSCULAR HEMOGLOBIN 31.6 pg (25-34); MEAN PLATELET VOLUME 11.8 fL (7.4-10.4); PLATELET COUNT 121 K/uL (130-400); RED BLOOD COUNT 3.93 M/uL (4.7-6.1); WHITE BLOOD COUNT 4.45 K/uL (4.8-10.8)
[2016-11-03 07:02] LABS: BUN/CREATININE RATIO 16.5 (10-20); CALCIUM 8.5 mg/dl (8.5-10.1); CREATININE 0.87 mg/dl (0.60-1.40); MAGNESIUM 1.7 mg/dl (1.8-2.4); POTASSIUM 3.3 mmol/L (3.5-5.1)
--- NOTE | 2016-11-03 08:01 | DIAGNOSTIC IMAGING REPORT ---
TWO VIEW CHEST CLINICAL HISTORY: Follow-up abnormal chest x-ray. FINDINGS: PA and lateral chest radiographs are compared to study dated 11/01/2016. The heart is enlarged and there is atherosclerotic calcification of the thoracic aorta. The pulmonary vasculature is noncongested. There is elevation of the right hemidiaphragm with mild bibasilar atelectasis. There is improved aeration of the right lung base as compared to 11/01/2016. No airspace consolidation is seen typical for pneumonia and there is no pleural effusion. There is no pneumothorax. The skeletal structures are osteopenic. Mild degenerative changes noted throughout the thoracic spine. Cholecystectomy clips are noted in the right upper quadrant. IMPRESSION: 1. Cardiomegaly with no acute cardiopulmonary abnormality. 2. There is mild bibasilar atelectasis. Aeration at the right lung base has improved from 11/01/2016. Electronically signed by: Juancho Concepcion M.D. 11/03/2016 7:59 AM Dictated Date/Time: 11/03/2016 7:57 AM
[2016-11-03] MEDS: PANTOprazole SOD 40 MG TAB PO SCH (08:30)
[2016-11-03] MEDS: CHOLECALCIFEROL 1000 INTER.UNIT TAB PO SCH (08:31)
[2016-11-03] MEDS: FENOFIBRATE 145 MG TAB PO SCH (08:31)
[2016-11-03] MEDS: COLCHICINE 0.6 MG TAB PO SCH (08:31)
[2016-11-03] MEDS: SPIRONOLACTONE 25 MG TAB PO SCH (08:32)
[2016-11-03] MEDS: CARBAMAZEPINE 200 MG TAB PO SCH ×2 (08:32→13:07)
[2016-11-03] MEDS: POTASSIUM CHLORIDE 20 MEQ TABCR PO SCH (08:32)
[2016-11-03] MEDS ORDERED: POTASSIUM CHLORIDE 20 MEQ TABCR PO ONE (08:45)
[2016-11-03] MEDS: LISINOPRIL 40 MG TAB PO SCH (08:59)
[2016-11-03] MEDS: METOPROLOL SUCC 50MG EXT REL TAB PO SCH (08:59)
[2016-11-03] MEDS: CEROVITE ADV FORMULA TAB PO SCH (09:00)
[2016-11-03] MEDS: ASPIRIN 81 MG ECTAB PO SCH (09:00)
[2016-11-03] MEDS ORDERED: MAGNESIUM OXIDE 400 MG TAB PO SCH (09:00)
[2016-11-03] MEDS: AMLODIPINE BESYLATE 5 MG TAB PO SCH (09:00)
[2016-11-03] MEDS: CLOPIDOGREL BISULFATE 75 MG TAB PO SCH (09:00)
--- NOTE | 2016-11-03 11:14 | Cardiology Follow-Up ---
Subjective General Date of Service: Nov 03, 2016. Chief Complaint: shortness of breath Pt evaluation today including: conversation w/ patient, physical exam, chart review, lab review, review of studies, review of inpatient medication list History of Present Illness Patient seen and examined. Notes three months of increasing dyspnea starting out as increased exertional dyspnea that progressed to resting dyspnea. He self discontinued his diuretic regimen "around the time the shortness of breath started" due to excessive urination. He notes concern that the dyspnea was an angina equivalent "which goes back to my memory of the four stents." Saw PCP in routine follow-up and was presented with the option of ER evaluation/hospitalization or outpatient workup. Admitted. Given four doses of 40 mg IV furosemide with significant improvement. I/O's are negative nearly 8 liters. Notes walking around the hallway with his "without immediate shortness of breath. Presenting symptoms are significantly improved. Peripheral edema is almost nonexistent. Denies chest pain, discomfort, or tightness. Denies pleuritic chest pain. No palpitations, unaware of the chronic atrial fibrillation. I/O's are negative 7,955 mL's overall EKG this morning reveals atrial fibrillation with a controlled, diffuse ST-T wave abnormality. November 02, 2016 TTE Interpretation Summary ([facility], Dr. Saunders): The left ventricle is normal in size. Left ventricular systolic function is normal. Ejection Fraction = 65-70%. The right ventricle is moderately dilated. The right ventricular systolic function is moderately reduced. The left atrium is severely dilated. The right atrium is severely dilated. The mitral regurgitant jet is eccentrically directed. There is mild to moderate mitral regurgitation. There is mild to moderate tricuspid regurgitation. Pulmonary hypertension is present the with estimated pulmonary artery pressure of 65 mm Hg. Allergies Coded Allergies: No Known Allergies (Unverified , 11/01/16) Social History Smoking Status: Never Smoker Hx Tobacco Use In Past Year?: No Hx Alcohol Use - Type And Amou: No Hx Substance Use - Type And Am: No Problem List Medical Problems: (1) Ambulatory dysfunction Status: Acute (2) Bimalleolar fracture of left ankle Status: Acute (3) Carbamazepine toxicity Status: Acute (4) Contusion of left knee Status: Acute (5) Left hip pain Status: Acute (6) Supratherapeutic INR Status: Acute (7) Unstable angina Status: Acute Physical Exam Vital Signs Last Vital Signs Documentation Date Time Temp Pulse Resp B/P Pulse Ox O2 Delivery O2 Flow Rate FiO2 11/03/16 08:00 90 Room Air 94 11/03/16 07:28 36.6 63 18 154/75 Physical Exam Constitutional: General Apperance: heathly-appearing Level of Distress: NAD Psychiatric: Mental Status: active & alert Orientation: to time, to place, to person Memory: recent memory normal, remote memory normal Head: normocephalic, atraumatic Eyes: Pupils: PERRLA Neck: pertinent finding (No JVD) Lungs: Respiratory effort: no dyspnea Auscultation: breath sounds normal, no wheezing, no rales/crackles, no rhonchi Cardiovascular: Heart Auscultation: no murmurs, no rubs, no gallops, irregular rate rhythm Peripheral Pulses: Radial Pulse: normal on the left, normal on the right Dorsalis Pedis Pulse: normal on the left, normal on the right Abdomen: Bowel Sounds: normal Inspection & Palpation: soft, non-distended, no masses Extremities: no cyanosis, no clubbing, edema (Minimal distal edema) Neurologic: Cranial Nerves: grossly intact Assessment and Plan Assessment and Plan Presentation with acute on chronic dyspnea following self discontinuation of diuretic therapy. Presenting symptoms have significantly improved/resolved following IV diuresis OK for discharge on his previously recommended oral diuretic regimen. Hypertension Hypertensive urgency noted on admission. IV hydralazine administered. Lisinopril increased Diuretics resumed Metoprolol and Norvasc continued as previously prescribed. Atherosclerotic coronary artery disease. Status post coronary intervention for two vessel disease with stents to the left anterior descending and ramus intermedius. Repeat catheterization was notable for in stent restenoses of the LAD for which he underwent PCI in December 2014 with placement of a drug eluting stent.. EKG's with diffuse ST-T wave changes similar to intermittent prior outpatient EKG's. Cardiac enzymes negative. Resting echocardiography without wall motion abnormalities, preserved LV systolic function Consideration to be made for outpatient pharmacological stress testing, as discussed. Atrial fibrillation Continue rate control of the chronic atrial fibrillation with metoprolol History of GI bleeding while on triple therapy with aspirin, Plavix, and Coumadin EGD and colonoscopy were without a source of bleeding identified (February 2015 ). Guaiac-positive stools, ongoing Recurrent mechanical falls including one resulting in a left iliac muscle hematoma requiring repeat transfusion of pRBC's, one resulting in a minimal displaced fracture of the proximal left fibula, and one resulting in a left ankle fracture. Risks of anticoagulation felt to be greater than the benefit. Continue ASA and clopidogrel Dyslipidemia. Continue atorvastatin. CARDIOLOGY ATTENDING ADDENDUM: The patient was seen and personally examined. Agree with Rolando Pool PA-C's findings and plans as documented above. Continues to diureses. Once patient is euvolemic, remainder of care and evaluation can be done as outpatient. Laboratory Results Last 24 Hours Test 11/03/16 05:33 White Blood Count 4.45 K/uL Red Blood Count 3.93 M/uL Hemoglobin 12.4 g/dL Hematocrit 37.6 % Mean Corpuscular Volume 95.7 fL Mean Corpuscular Hemoglobin 31.6 pg Mean Corpuscular Hemoglobin Concent 33.0 g/dl RDW Standard Deviation 54.5 fL RDW Coefficient of Variation 15.7 % Platelet Count 121 K/uL Mean Platelet Volume 11.8 fL Sodium Level 144 mmol/L Potassium Level 3.3 mmol/L Chloride Level 105 mmol/L Carbon Dioxide Level 31 mmol/L Anion Gap 8.0 mmol/L Blood Urea Nitrogen 14 mg/dl Creatinine 0.87 mg/dl Est Creatinine Clear Calc Drug Dose 91.5 ml/min Estimated GFR () 99.2 Estimated GFR (Non- 85.6 BUN/Creatinine Ratio 16.5 Random Glucose 95 mg/dl Calcium Level 8.5 mg/dl Magnesium Level 1.7 mg/dl
[2016-11-03] MEDS ORDERED: MAGN400T6 PO (12:50)
[2016-11-03] MEDS ORDERED: ASPEC81 PO (12:50)
[2016-11-03] MEDS ORDERED: LSN40 PO (12:50)
[2016-11-03] MEDS ORDERED: POTA20TA13 PO (12:50)
--- NOTE | 2016-11-03 12:54 | Discharge Instructions ---
Discharge Instructions Date of Service Nov 03, 2016. Admission Reason for Admission: Sob(Shortness Of Breath) On Exertion Discharge Discharge Diagnosis / Problem: Heart failure exacerbation Discharge Goals Goal(s): Improve disease control Activity Recommendations Activity Limitations: resume your previous activity . Instructions / Follow-Up Instructions / Follow-Up Please follow up with Cardiology Heart Failure clinic with Vanessa Quiñones on November 10 at 1:30pm. Please increase the potassium and magnesium supplements to twice a day. Lisinopril was increased from 10mg to 40mg daily. You can take 4 tablets of the 10mg dose until you run out before filling the new prescription. Please take your water pills, Lasix and Aldactone, as prescribed. Current Hospital Diet Patient's current hospital diet: AHA Diet (Heart Healthy) Discharge Diet Recommended Diet: AHA Diet (Heart Healthy) Pending Studies Studies pending at discharge: no Medical Emergencies . Who to Call and When: Medical Emergencies: If at any time you feel your situation is an emergency, please call 911 immediately. . Non-Emergent Contact Non-Emergency issues call your: Primary Care Provider . . "Provider Documentation" section prepared by Dcaia Wyatt. . VTE Core Measure Inpt VTE Proph given/why not?: Enoxaparin (Lovenox)SQ
--- NOTE | 2016-11-03 16:46 | Discharge Summary ---
Discharge Summary Date of Service Nov 03, 2016. Discharge Summary Admission Date: Nov 01, 2016 at 18:24 Discharge Date: Nov 03, 2016 Discharge Disposition: Home Principal Diagnosis: Right sided heart failure exacerbation due to medication noncompliance Procedures: TTE * The left ventricle is normal in size. * Left ventricular systolic function is normal. * Ejection Fraction = 65-70%. * The right ventricle is moderately dilated. * The right ventricular systolic function is moderately reduced. * The left atrium is severely dilated. * The right atrium is severely dilated. * The mitral regurgitant jet is eccentrically directed. * There is mild to moderate mitral regurgitation. * There is mild to moderate tricuspid regurgitation. * Pulmonary hypertension is present the with estimated pulmonary artery pressure of 65 mm Hg. Consultations: Cardiology Medication Reconciliation New Medications: Aspirin (Aspirin EC Low Dose) 81 Mg Ectab 81 MG PO QAM for 30 Days, #30 TAB Lisinopril (Lisinopril) 40 Mg Tab 40 MG PO QAM for 30 Days, #30 TAB Changed Medications: Magnesium Oxide (Mag-Ox) 400 Mg Tab 400 MG PO BID for 30 Days, #60 TAB (Changed from: QAM) Potassium Chloride Microencaps (Potassium Chloride Er) 20 Meq Tab 20 MEQ PO BID for 30 Days, #60 TAB 3 Refills (Changed from: DAILY; 90; 90) Continued Medications: Acetaminophen (Tylenol) 325 Mg Tab 650 MG PO Q4 PRN for Pain, TAB Amlodipine (Norvasc) 5 Mg Tab 5 MG PO QAM, TAB Atorvastatin (Lipitor) 20 Mg Tab 20 MG PO DAILY, TAB Carbamazepine (Tegretol) 200 Mg Tab 200 MG PO QID, TAB Cholecalciferol (Vitamin D) 1,000 Unit Tab 1000 UNITS PO DAILY Clopidogrel (Plavix) 75 Mg Tab 75 MG PO QAM, TAB Colchicine (Colchicine) 0.6 Mg Tab 0.6 MG PO QAM, TAB Dutasteride (Avodart) 0.5 Mg Cap 0.5 MG PO DAILY@1730, CAP Fenofibrate (Tricor ) 145 Mg Tab 145 MG PO QAM, TAB Furosemide (Lasix) 40 Mg Tab 40 MG PO DAILY, TAB Iron-Vitamin C (Vitron-C) 1 Tab Tab 1 TAB PO BID Metoprolol Succ (Toprol Xl) (Toprol-Xl ) 100 Mg Tabcr 100 MG PO DAILY, TAB TAKE WITH 50MG DAILY + 150MG DOSE. Metoprolol Succinate (Toprol Xl) 50 Mg Tabcr 50 MG PO DAILY, #30 TAB TAKE WITH 100MG DAILY = 150 MG DOSE Nitroglycerin (Nitrostat) 0.4 Mg Tab 0.4 MG UT PRN PRN for Chest Pain, BTL Pantoprazole (Protonix) 40 Mg Tab 40 MG PO BID, #30 TAB Spironolactone (Aldactone) 25 Mg Tab 12.5 MG PO QAM, TAB TAKE HALF OF A 25MG TABLET Tamsulosin HCl (Tamsulosin HCl) 0.4 Mg Cap 0.4 MG PO HS Discontinued Medications: Lisinopril (Lisinopril) 10 Mg Tab 10 MG PO QAM Admission Information HPI (per Admitting provider): This is a 71 y/o male with PMHx of CAD s/p stents, PAF, HTN, Dyslipidemia and other problems as outlined below who presents to the ED c/o worsening SOB x 6-8 months. Pt reports that 6-8 months ago he developed worsening SOB with exertion. Just walking across his driveway to his car is a chore. He denies any pain with his breathing and denies SOB at rest or with laying flat. Pt reports he had a head cold and recently completed 2 courses of antibiotics. He feels much better after taking the antibiotics however the SOB persists. Pt has a history of similar sxs 4 years at which time he required cardiac cath with 4 stents placed ([facility]). Pt is concerned that this SOB is related to his heart again. Pt takes all of his medications as prescribed except for his Lasix which he admits he rarely takes because it "is a pain". He last took his Lasix about 3 weeks ago. Pt denies fever/chills, diaphoresis, chest pain, palpitations, cough, wheezing, abd pain, N/V, bowel or bladder issues, worsening LE edema, calf pain, lightheadedness/dizziness. In the ED, BP is elevated to 221/135. Pt is afebrile with no leukocytosis. Initial troponin negative and EKG no acute ischemic change. CXR developing infiltrate R base. Pt is stable and will be admitted for further evaluation and treatment. Physical Exam (per Admitting): General Appearance: WD/WN, no apparent distress, + pertinent finding (Pt is sitting up in bed comfortably; notable conversational dyspnea ) Head: normocephalic, atraumatic Eyes: normal inspection ENT: hearing grossly normal Neck: supple Respiratory/Chest: chest non-tender, lungs clear, normal breath sounds, no respiratory distress, + pertinent finding (no crackles or wheezing noted) Cardiovascular: no murmur, + irregularly irregular, + pertinent finding (+ JVD) Abdomen/GI: normal bowel sounds, non tender, soft Back: normal inspection Extremities/Musculoskelatal: normal inspection, no calf tenderness, + pedal edema, + swelling (2+ pitting edema bilat) Neurologic/Psych: alert, normal mood/affect, oriented x 3 Skin: normal color, warm/dry Hospital Course Patient was admitted with SOB due to acute right sided heart failure exacerbation 2/2 medication noncompliance. EKG and cardiac enzymes were negative for ischemia. TTE showed dilated atria and moderately reduced right ventricular function. Patient was diuresed with IV Lasix with resolution of SANDOVAL. Lisinopril dose was increased. Patient was continued on the remainder of his home medications. Patient was encouraged to be compliant with his diuretics and expressed understanding. Patient deemed stable for discharge with Cardiology follow up. PE on discharge: General- awake; alert; NAD Eyes- EOMI; no scleral icterus Neck- no stridor; trachea midline Lungs- CTA bilaterally; no wheezes/crackles Heart- irregularly irregular; no m/r/g Abdomen- soft; NTND; nBS Back- no gross abnormalities Extremities- no c/c/e; no deformity Neuro- no focal deficits Skin- no appreciable rash . Total time spent on discharge = This includes examination of the patient, discharge planning, medication reconciliation, and communication with other providers. Discharge Instructions Discharge Instructions Date of Service Nov 03, 2016. Admission Reason for Admission: Sob(Shortness Of Breath) On Exertion Discharge Discharge Diagnosis / Problem: Heart failure exacerbation Discharge Goals Goal(s): Improve disease control Activity Recommendations Activity Limitations: resume your previous activity . Instructions / Follow-Up Instructions / Follow-Up Please follow up with Cardiology Heart Failure clinic with Vanessa Quiñones on November 10 at 1:30pm. Please increase the potassium and magnesium supplements to twice a day. Lisinopril was increased from 10mg to 40mg daily. You can take 4 tablets of the 10mg dose until you run out before filling the new prescription. Please take your water pills, Lasix and Aldactone, as prescribed. Current Hospital Diet Patient's current hospital diet: AHA Diet (Heart Healthy) Discharge Diet Recommended Diet: AHA Diet (Heart Healthy) Pending Studies Studies pending at discharge: no Medical Emergencies . Who to Call and When: Medical Emergencies: If at any time you feel your situation is an emergency, please call 911 immediately. . Non-Emergent Contact Non-Emergency issues call your: Primary Care Provider . . "Provider Documentation" section prepared by Dacia Wyatt. . VTE Core Measure Inpt VTE Proph given/why not?: Enoxaparin (Lovenox)SQ Additional Copies To Ashvin Ayala M.D.(JACOB) Vanessa Quiñones, JEAN CLAUDE
[2016-11-30] MEDS ORDERED: LCTX PO (13:11)
[2016-11-30] MEDS ORDERED: CPR500 PO (13:11)
== END 2016-11-03 13:41 | disposition home or self-care (01) ==
LOC: ENRESERVDT → ENRESERVTM → C.EDB 14:53 → C.2T 18:24
PROVIDERS: ADMIT Hospitalist; ATTEND Internal Medicine
DX: I11.0 Hypertensive heart disease with heart failure (principal); I50.9 Heart failure, unspecified; I16.0 Hypertensive urgency; I25.110 Atherosclerotic heart disease of native coronary artery with unstable angina pectoris; I48.0 Paroxysmal atrial fibrillation; N40.0 Benign prostatic hyperplasia without lower urinary tract symptoms; E78.5 Hyperlipidemia, unspecified; G47.30 Sleep apnea, unspecified; G50.0 Trigeminal neuralgia; Z87.11 Personal history of peptic ulcer disease; Z96.659 Presence of unspecified artificial knee joint; Z91.14 Patient's other noncompliance with medication regimen; Z81.8 Family history of other mental and behavioral disorders; Z82.49 Family history of ischemic heart disease and other diseases of the circulatory system

== ENCOUNTER 2016-11-28 08:32 | Inpatient (IN) | payer OTHER ==
[~2016-11-28] VITALS: Ht 180.3 cm; Wt 94.6 kg
[~2016-11-28 08:32] MED LIST changes: +AMLO-110 PO; +ASPEC81 PO; +ATOR-22 PO; +CHOL100010 PO; -FERR1TAB61 PO; +FERRTAB18 PO; -FRS/40 PO; +FURO40TA3 PO; -FURO80TA63 PO; -LISI-461 PO; +LSN40 PO; +MAGN400T6 PO; -MCRK20 PO; -MGNO400 PO; -NRV5 PO; +NTRGSL/4 UT; -NTRSLP4 SL; +POTA20TA13 PO
[2016-11-28] MEDS ORDERED: FERR27TA5 PO (08:54)
[2016-11-28] MEDS ORDERED: SODIUM CHLORIDE 0.9% 1000ML 1,000 ML IV STA (08:57)
[2016-11-28 09:19] LABS: BASO % 0.2 %; BASO ABS # 0.02 K/uL (0-0.2); COMPLETE YES; HEMATOCRIT 43.7 % (42-52); IG% 0.3 %; LYMPH % 10.6 %; LYMPH ABS # 1.02 K/uL (1.2-3.4); MEAN CELL VOLUME 95.2 fL (80-100); MEAN CORPUSCULAR HGB CONC 33.6 g/dl (32-36); MEAN PLATELET VOLUME 11.6 fL (7.4-10.4); MONO % 6.5 %; NEUT % 82.4 %; PLATELET COUNT 150 K/uL (130-400); RED BLOOD COUNT 4.59 M/uL (4.7-6.1); WHITE BLOOD COUNT 9.58 K/uL (4.8-10.8)
--- NOTE | 2016-11-28 09:21 | DIAGNOSTIC IMAGING REPORT ---
CHEST ONE VIEW PORTABLE CLINICAL HISTORY: Acute change in mental status COMPARISON STUDY: 11/03/2016 FINDINGS: There is mild elevation right hemidiaphragm. There is no failure. There is no focal pulmonary consolidation. There are no pleural effusions.[ There is minor right basilar atelectasis IMPRESSION: Stable mild elevation of the right hemidiaphragm. No acute findings. Electronically signed by: Randell Soto M.D. 11/28/2016 9:20 AM Dictated Date/Time: 11/28/2016 9:19 AM
[2016-11-28 09:29] LABS: URINE APPEARANCE TURBID (CLEAR); URINE BILIRUBIN NEG (NEG); URINE COLOR DK YELLOW; URINE EPITHELIAL CELL AUTO >30 /lpf (0-5); URINE NITRITE NEG (NEG); URINE SPECIFIC GRAVITY 1.017 (1.000-1.030); UROBILINOGEN NEG (NEG)
[2016-11-28 09:31] LABS: MANUAL MICROSCOPIC REQUIRED? NO; REVIEW REQ? NO; ZZUR CULT IF INDIC CLEAN CATCH YES
[2016-11-28 09:32] LABS: INR 1.2 (0.9-1.1); PARTIAL THROMBOPLASTIN RATIO 1.2; PROTHROMBIN TIME (PATIENT) 13.4 SECONDS (9.0-12.0)
--- NOTE | 2016-11-28 09:33 | DIAGNOSTIC IMAGING REPORT ---
CT HEAD WITHOUT CONTRAST (CT) CLINICAL HISTORY: Acute change in mental status. COMPARISON STUDY: 11/09/2015 TECHNIQUE: Axial CT of the brain is performed from the vertex to the skull base. IV contrast was not administered for this examination. CT DOSE: 614.27 mGy.cm FINDINGS: No intra or extra-axial mass lesions are visualized. There is no CT evidence of acute cortical infarction. There is no evidence of midline shift. There is no acute hemorrhage. No calvarial fractures are visualized. There are minor white matter hypodensities likely on a small vessel basis. There is dense calcification/ossification of the falx. There is no evidence of pathologic ventricular dilatation. There is no evidence of acute sinusitis IMPRESSION: No acute intracranial findings Electronically signed by: Randell Soto M.D. 11/28/2016 9:31 AM Dictated Date/Time: 11/28/2016 9:30 AM
[2016-11-28 09:35] LABS: BUN/CREATININE RATIO 29.5 (10-20); CREATININE 1.2 mg/dl (0.60-1.40); POTASSIUM 3.8 mmol/L (3.5-5.1)
[2016-11-28] MEDS ORDERED: CEFTRIAXONE SOD INJ 1 GM ADDVIAL IV STA (09:53)
[2016-11-28 10:40] VITALS: BP 156/92; PULSE 92; TEMP 36.8; O2SAT 94; Ht 180.3 cm; Wt 94.6 kg
[2016-11-28] MEDS ORDERED: ONDANSETRON INJ 2 MG/ML 2 ML VIAL IV PRN (12:30)
[2016-11-28] MEDS ORDERED: ACETAMINOPHEN 325 MG TAB PO PRN (12:30)
[2016-11-28] MEDS ORDERED: PHARMACIST DISCHARGE MED REC CONSULT PRN (12:45)
[2016-11-28] MEDS ORDERED: MAGN400T6 PO (13:29)
[2016-11-28] MEDS ORDERED: FERR1TAB13 PO (13:29)
--- NOTE | 2016-11-28 14:16 | EMERGENCY ROOM VISIT NOTE ---
History Report prepared by Jenni: Laurita Oneil Under the Supervision of: Dr. Carroll Don D.O. First contact with patient: 08:32 Stated Complaint: CONFUSION History of Present Illness The patient is a 71 year old male who presents to the Emergency Room with complaints of constant altered mental status that worsened 2 days ago, per his . The patient's states that the patient has been confused for a while now, but recently it has been worse. The patient came to the ED via ambulance from home. He states that he does not have any complaints, but his feels that he is confused. Pt denies headache, change in vision, fevers, cough, rhinorrhea, sore throat, chest pain, shortness of breath, abdominal pain, nausea , vomiting, diarrhea, and pain with urination. The patient's states that the patient has been doing repetitive actions because he forgets that he already did them. For example, she states that this morning he insisted on looking for his glasses under the bed even though she had already helped him find them and he was wearing them. She also states that two days ago while she was making dinner, the patient walked into the kitchen and said, "well I guess you're not going out to eat with me." The patient's states that she told him that he never asked her to go out to eat and he then agreed to eat the dinner that she was making. However, when the patient's told him that was dinner was ready he did not respond to her and continued sitting in the living room. She states that she told him to come eat multiple times, but he did not respond and eventually went up to his room and hasn't come out much until today when she helped him out of bed because people were coming to the house to work on things. The patient states that he has not been eating much, but he is still taking his medications. However, his states that he missed his medications two days ago because they were still in his pill container. Per nursing staff, the patient's reported that she told the patient that she wanted to get a divorce two days ago and the patient's mental status worsened after that. The patient's states that the patient had a recent MRI done at [facility] for twitching in his arm, but she is unsure of the results. Source of History: patient, spouse/significant other (), nursing staff Onset: 2 days ago Position: head Quality: other (altered mental status) Timing: worsening Associated Symptoms: No SOB, No abdominal pain, No chest pain, No cough, No diarrhea, No fevers, No headache, No nausea, No sorethroat, No urinary symptoms (pain with urination), No vomiting Note: no change in vision, no rhinorrhea Review of Systems See HPI for pertinent positives & negatives. A total of 10 systems reviewed and were otherwise negative. Past Medical & Surgical Medical Problems: (1) Atrial fibrillation (2) Bimalleolar ankle fracture (3) BPH (benign prostatic hypertrophy) (4) Confusion (5) Coronary artery disease (6) Dyslipidemia (7) GI bleed (8) Gout (9) History of peptic ulcer disease (10) Hypertension (11) Sleep apnea (12) SOB (shortness of breath) on exertion (13) Trigeminal neuralgia (14) UTI (urinary tract infection) Surgical Problems: (1) Status post cardiac catheterization (2) Status post coronary artery stent placement (3) Status post total knee replacement Family History Bipolar disorder MOTHER Myocardial infarction FATHER Social History Smoking Status: Never Smoker Alcohol Use: none Drug Use: none Marital Status: Housing Status: lives with significant other Occupation Status: retired Current/Historical Medications Scheduled Amlodipine (Norvasc), 5 MG PO QAM Aspirin (Aspirin EC Low Dose), 81 MG PO QAM Atorvastatin (Lipitor), 20 MG PO DAILY Carbamazepine (Tegretol), 200 MG PO QID Cholecalciferol (Vitamin D), 1,000 UNITS PO DAILY Clopidogrel (Plavix), 75 MG PO QAM Colchicine (Colchicine), 0.6 MG PO QAM Dutasteride (Avodart), 0.5 MG PO DAILY Fenofibrate (Tricor ), 145 MG PO QAM Ferrous Sulfate (Kp Ferrous Sulfate), 1 TAB PO DAILY Furosemide (Lasix), 40 MG PO DAILY Lisinopril (Lisinopril), 40 MG PO QAM Magnesium Oxide (Mag-Ox), 400 MG PO DAILY Metoprolol Succ (Toprol Xl) (Toprol-Xl ), 100 MG PO DAILY Metoprolol Succinate (Toprol Xl), 50 MG PO DAILY Pantoprazole (Protonix), 40 MG PO QPM Potassium Chloride Microencaps (Potassium Chloride Er), 20 MEQ PO BID Spironolactone (Aldactone), 12.5 MG PO QAM Tamsulosin HCl (Tamsulosin HCl), 0.4 MG PO HS Scheduled PRN Acetaminophen (Tylenol), 650 MG PO Q4 PRN for Pain Nitroglycerin (Nitrostat), 0.4 MG UT PRN PRN for Chest Pain Allergies Coded Allergies: No Known Allergies (Unverified , 11/01/16) Physical Exam Vital Signs Date Time Temp Pulse Resp B/P Pulse Ox O2 Delivery O2 Flow Rate FiO2 11/28/16 11:22 82 11/28/16 10:51 78 18 156/92 95 Room Air 11/28/16 10:40 36.8 92 18 156/92 94 Room Air 11/28/16 10:08 79 18 163/84 94 Room Air 11/28/16 08:41 36.8 99 22 148/79 95 Room Air 11/28/16 08:39 95 Room Air 11/28/16 08:35 89 Physical Exam GENERAL: alert, sitting up in bed, disheveled, no acute distress EYE EXAM: normal conjunctiva, PERRL and EOM's intact OROPHARYNX: no exudate, no erythema, lips, buccal mucosa, and tongue normal and mucous membranes are moist NECK: supple, no nuchal rigidity, no adenopathy, non-tender LUNGS: Clear to auscultation. Normal chest wall mechanics HEART: no murmurs, S1 normal and S2 normal ABDOMEN: abdomen soft, non-tender, normo-active bowel sounds, no masses, no rebound or guarding. BACK: Back is symmetrical on inspection and there is no deformity, no midline tenderness, no CVA tenderness. SKIN: no rashes and no bruising UPPER EXTREMITIES: upper extremities are grossly normal. LOWER EXTREMITIES: No pitting edema. NEURO EXAM: Alert, oriented to place but not year or date, cranial nerves II- XII intact, normal speech, no weakness of arms, no weakness of legs. Negative drift. Unable to perform finger to nose secondary to mentation. Medical Decision & Procedures ER Provider Diagnostic Interpretation: Radiology results as stated below per my review and the radiologist's interpretation: CHEST ONE VIEW PORTABLE FINDINGS: There is mild elevation right hemidiaphragm. There is no failure. There is no focal pulmonary consolidation. There are no pleural effusions.[ There is minor right basilar atelectasis IMPRESSION: Stable mild elevation of the right hemidiaphragm. No acute findings. Electronically signed by: Randell Soto M.D. 11/28/2016 9:20 AM Dictated Date/Time: 11/28/2016 9:[address] HEAD WITHOUT CONTRAST (CT) FINDINGS: No intra or extra-axial mass lesions are visualized. There is no CT evidence of acute cortical infarction. There is no evidence of midline shift. There is no acute hemorrhage. No calvarial fractures are visualized. There are minor white matter hypodensities likely on a small vessel basis. There is dense calcification/ossification of the falx. There is no evidence of pathologic ventricular dilatation. There is no evidence of acute sinusitis IMPRESSION: No acute intracranial findings Electronically signed by: Randell Soto M.D. 11/28/2016 9:31 AM Dictated Date/Time: 11/28/2016 9:30 AM Laboratory Results 11/28/16 09:00 Red Blood Count 4.59, Mean Corpuscular Volume 95.2, Mean Corpuscular Hemoglobin 32.0, Mean Corpuscular Hemoglobin Concent 33.6, Mean Platelet Volume 11.6, Neutrophils (%) (Auto) 82.4, Lymphocytes (%) (Auto) 10.6, Monocytes (%) (Auto) 6.5, Eosinophils (%) (Auto) 0.0, Basophils (%) (Auto) 0.2, Neutrophils # (Auto) 7.89, Lymphocytes # (Auto) 1.02, Monocytes # (Auto) 0.62, Eosinophils # (Auto) 0.00, Basophils # (Auto) 0.02 11/28/16 09:00 Test 11/28/16 08:35 11/28/16 09:00 Urine Color DK YELLOW Urine Appearance TURBID (CLEAR) Urine pH 5.0 (4.5-7.5) Urine Specific Revloc 1.017 (1.000-1.030) Urine Protein TRACE (NEG) Urine Glucose (UA) NEG (NEG) Urine Ketones TRACE (NEG) Urine Occult Blood 2+ (NEG) Urine Nitrite NEG (NEG) Urine Bilirubin NEG (NEG) Urine Urobilinogen NEG (NEG) Urine Leukocyte Esterase LARGE (NEG) Urine WBC (Auto) >30 /hpf (0-5) Urine RBC (Auto) 0-4 /hpf (0-4) Urine Hyaline Casts (Auto) 1-5 /lpf (0-5) Urine Epithelial Cells (Auto) >30 /lpf (0-5) Urine Bacteria (Auto) 4+ (NEG) White Blood Count 9.58 K/uL (4.8-10.8) Red Blood Count 4.59 M/uL (4.7-6.1) Hemoglobin 14.7 g/dL (14.0-18.0) Hematocrit 43.7 % (42-52) Mean Corpuscular Volume 95.2 fL (80-100) Mean Corpuscular Hemoglobin 32.0 pg (25-34) Mean Corpuscular Hemoglobin Concent 33.6 g/dl (32-36) Platelet Count 150 K/uL (130-400) Mean Platelet Volume 11.6 fL (7.4-10.4) Neutrophils (%) (Auto) 82.4 % Lymphocytes (%) (Auto) 10.6 % Monocytes (%) (Auto) 6.5 % Eosinophils (%) (Auto) 0.0 % Basophils (%) (Auto) 0.2 % Neutrophils # (Auto) 7.89 K/uL (1.4-6.5) Lymphocytes # (Auto) 1.02 K/uL (1.2-3.4) Monocytes # (Auto) 0.62 K/uL (0.11-0.59) Eosinophils # (Auto) 0.00 K/uL (0-0.5) Basophils # (Auto) 0.02 K/uL (0-0.2) RDW Standard Deviation 49.9 fL (36.4-46.3) RDW Coefficient of Variation 14.3 % (11.5-14.5) Immature Granulocyte % (Auto) 0.3 % Immature Granulocyte # (Auto) 0.03 K/uL (0.00-0.02) Prothrombin Time 13.4 SECONDS (9.0-12.0) Prothromb Time International Ratio 1.2 (0.9-1.1) Activated Partial Thromboplast Time 31.2 SECONDS (21.0-31.0) Partial Thromboplastin Ratio 1.2 Anion Gap 7.0 mmol/L (3-11) Est Creatinine Clear Calc Drug Dose 64.6 ml/min Estimated GFR () 69.1 Estimated GFR (Non- 59.6 BUN/Creatinine Ratio 29.5 (10-20) Calcium Level 9.0 mg/dl (8.5-10.1) Total Bilirubin 2.0 mg/dl (0.2-1) Direct Bilirubin 0.9 mg/dl (0-0.2) Aspartate Amino Transf (AST/SGOT) 33 U/L (15-37) Alanine Aminotransferase (ALT/SGPT) 25 U/L (12-78) Alkaline Phosphatase 37 U/L (45-117) Troponin I 0.033 ng/ml (0-0.045) Total Protein 7.0 gm/dl (6.4-8.2) Albumin 3.3 gm/dl (3.4-5.0) Laboratory results per my review. Medications Administered Medications (Trade) Dose Ordered Sig/Elsi Route Start Time Stop Time Status Last Admin Dose Admin Sodium Chloride (Nss 1000ml) 1,000 ml @ 999 mls/hr Q1H1M STAT IV 11/28/16 08:57 11/28/16 09:57 DC 11/28/16 08:59 999 MLS/HR Ceftriaxone Sodium (Rocephin Inj) 1 gm NOW STAT IV 11/28/16 09:53 11/28/16 09:54 DC 11/28/16 10:46 1 GM ECG Indication: altered mental status Rate (beats per minute): 90 Rhythm: atrial fibrillation Findings: ST depression (Lateral, Inferior), other (normal axis) Comparison ECG Date: 11/03/2016 Change: no significant change ED Course ED COURSE: Vital signs were reviewed and showed tachycardia. The patients medical record was reviewed The above diagnostic studies were performed and reviewed. ED treatments and interventions as stated above. 0838: The patient was evaluated in room A3. A complete history and physical examination was performed. 0857: Ordered Sodium Chloride 1000 ml @ 999 mls/hr IV 0953: Ordered Rocephin Inj 1 gm IV 1020: Upon reevaluation, the patient is resting comfortably. I discussed my findings with the patient and he understands and agrees with the treatment plan. I am waiting to discuss my findings with the patient's also Based on the patients age, coexisting illnesses, exam and lab findings the decision to treat as an inpatient was made. The patient remained stable while under my care. The patient will be evaluated for further management. 1031: The patient's is now back at bedside, so I updated her on the patient 's results as well. She is in agreement with the treatment plan. 1039: I reviewed the patient's case with Karlie Glez. She will evaluate the patient for further management. Medical Decision Differential diagnoses includes but is not limited to toxic, metabolic, infectious, traumatic, cardiac, neurologic, hematologic, psychiatric and inflammatory etiologies. Patient is a 71-year-old male who presents the ER for not eating and taking associated with confusion brought in by his . She notes that he does wax and wane with intermittent confusion but since Monday this has been significantly worse. He supple day on Monday. CBC along with BMP, LFTs are unremarkable. Troponin was detectable but not positive. Bilirubin was elevated but he had no abdominal pain. UA suggest a UTI although there was epithelial cells. I do favor that this likely cause of his worsening confusion acutely. He was given a dose of Rocephin and fluids. I discussed the findings with though at bedside. Discussed with internal medicine for further evaluation of worsening mentation associated with a UTI. Consults Time Called: [phone] Consulting Physician: Karlie Glez Returned Call: [phone] I reviewed the patient's case with Karlie Glez. She will evaluate the patient for further management. Impression Primary Impression: Altered mental status Additional Impression: UTI (urinary tract infection) Scribe Attestation The scribe's documentation has been prepared under my direction and personally reviewed by me in its entirety. I confirm that the note above accurately reflects all work, treatment, procedures, and medical decision making performed by me. Departure Information Dispostion Being Evaluated By Hospitalist Prescriptions Magnesium Oxide (Mag-Ox) 400 Mg Tab 400 MG PO DAILY for 30 Days, #30 TAB Prov: Karlie Swanson .LYLE 11/28/16 Referrals Ashvin Ayala M.D.(HUGH) (PCP) Problem Qualifiers Primary Impression: Altered mental status Altered mental status type: unspecified Qualified Codes: R41.82 - Altered mental status, unspecified Additional Impression: UTI (urinary tract infection) Urinary tract infection type: site unspecified Hematuria presence: without hematuria Qualified Codes: N39.0 - Urinary tract infection, site not specified
[2016-11-28 14:18] LABS: ESTIMATED AVERAGE GLUCOSE 117 mg/dl; HA1C FLAG Normal (Normal)
--- NOTE | 2016-11-28 15:35 | Neurology Consultation ---
Neurology Consultation Date of Consultation: November 28, 2016. Attending Physician: Reji Freedman MD Primary Care Physician: Ashvin Ayala M.D.(JACOB) Reason for Consultation: lethargic, confusion History of Present Illness Source: patient Ashvin is a 71 year old male PMH- BPH, confusion, trigeminal neuralgia, HTN, GI bleed, CAD, afib, currently on plavix and aspirin. Who presents who was brought to the ED with MS change that worsened. reported that the patient has been doing repetitive actions because he forgets that he already did them. He states his was making dinner but he didn't feel like eating and she got made because she didn't leave the living room and then went up to his room without eating. She tried to get him up in the am and he wouldn't get OOB. He is not eating well per his account. He did miss some of his medications two days ago because they were still in his pill container. He states she told him she wanted to get a divorce two days ago and he states this really got him confused. He is still confused why she would say this to him. He remembers having the MRI that was ordered by Dr Fuentes in Neurology and the results just showed some normal aging. denies, CP, SOB, abdominal pain, one sided weakness, numbness tingling, swallowing issues, vision changes, bowel or bladder issues, no swallowing or slurred speech Past Medical/Surgical History Medical Problems: (1) Altered mental status Status: Acute (2) Ambulatory dysfunction Status: Acute (3) Bimalleolar fracture of left ankle Status: Acute (4) Carbamazepine toxicity Status: Acute (5) Contusion of left knee Status: Acute (6) Left hip pain Status: Acute (7) Supratherapeutic INR Status: Acute (8) Unstable angina Status: Acute Social History Drug Use: none Marital Status: Housing Status: lives with significant other Occupation Status: retired Allergies Coded Allergies: No Known Allergies (Unverified , 11/01/16) Current Inpatient Medications Current Inpatient Medications Medications (Trade) Dose Ordered Sig/Elsi Route Start Time Stop Time Status Last Admin Dose Admin Acetaminophen (Tylenol Tab) 650 mg Q4H PRN PO 11/28/16 12:30 12/28/16 12:29 Ondansetron HCl 4 mg 4 mg Q6H PRN IV 11/28/16 12:30 12/28/16 12:29 Ceftriaxone Sodium/Dextrose (Rocephin Inj/ Dextrose Add-[place] 50ML) 50 ml @ 100 mls/hr DAILY@1000 IV 11/29/16 10:00 12/08/16 09:59 Miscellaneous Information (Pharmacist Discharge Med Rec Consult) 1 ea UD PRN N/A 11/28/16 12:45 12/28/16 12:44 Amlodipine Besylate (Norvasc Tab) 5 mg QAM PO 11/29/16 09:00 12/29/16 08:59 Aspirin (Ecotrin Tab) 81 mg QAM PO 11/29/16 09:00 12/29/16 08:59 Atorvastatin Calcium (Lipitor Tab) 20 mg DAILY PO 11/29/16 09:00 12/29/16 08:59 Carbamazepine (Tegretol Tab) 200 mg QID PO 11/28/16 17:00 12/28/16 16:59 Cholecalciferol (Vitamin D Tab) 1,000 inter.unit DAILY PO 11/29/16 09:00 12/29/16 08:59 Clopidogrel Bisulfate (plAVix TAB) 75 mg QAM PO 11/29/16 09:00 12/29/16 08:59 Colchicine (Colchicine Tab) 0.6 mg QAM PO 11/29/16 09:00 12/29/16 08:59 Fenofibrate (Tricor Tab) 145 mg QAM PO 11/29/16 09:00 12/29/16 08:59 Furosemide (Lasix Tab) 40 mg DAILY PO 11/29/16 09:00 12/29/16 08:59 Lisinopril (Zestril Tab) 40 mg QAM PO 11/29/16 09:00 12/29/16 08:59 Magnesium Oxide (Mag-Ox Tab) 400 mg DAILY PO 11/29/16 09:00 12/29/16 08:59 Metoprolol Succinate (Toprol Xl Tab) 150 mg DAILY PO 11/29/16 09:00 12/29/16 08:59 Pantoprazole Sodium (Protonix Tab) 40 mg QPM PO 11/28/16 21:00 12/28/16 20:59 Potassium Chloride (Klor-Con Tab) 20 meq BID PO 11/28/16 21:00 12/28/16 20:59 Spironolactone (Aldactone Tab) 12.5 mg QAM PO 11/29/16 09:00 12/29/16 08:59 Tamsulosin HCl (Flomax Cap) 0.4 mg HS PO 11/28/16 21:00 12/28/16 20:59 Miscellaneous Information (Order Awaiting Action) 1 ea QS N/A 11/28/16 16:00 12/28/16 15:59 Ferrous Sulfate (Feosol Tab) 325 mg DAILY PO 11/29/16 09:00 12/29/16 08:59 Physical Exam Vital Signs (Past 24 Hrs): Date Time Temp Pulse Resp B/P Pulse Ox O2 Delivery O2 Flow Rate FiO2 11/28/16 13:12 91 20 150/78 98 11/28/16 13:03 91 20 150/79 99 Room Air 11/28/16 11:22 82 11/28/16 10:51 78 18 156/92 95 Room Air 11/28/16 10:40 36.8 92 18 156/92 94 Room Air 11/28/16 10:08 79 18 163/84 94 Room Air 11/28/16 08:41 36.8 99 22 148/79 95 Room Air 11/28/16 08:39 95 Room Air 11/28/16 08:35 89 Physical Exam: Constitutional: appearance nourished, healthy and normal Ears, Nose, Mouth and Throat: mucous membranes moist, no injection and skin normal, eyes normal Cardiovascular: irregular Respiratory: clear to auscultation (CTA) and no rales, rhonchi or wheeze Musculoskeletal: no peripheral edema and good distal pulses Skin: no stigmata of neurocutaneous disease noted and normal and intact Eyes: extraocular muscles intact (EOMI) and pupils equal, round and reactive to light (PERRL) NEUROLOGIC EXAMINATION: Mental status: Alert and interactive Oriented to [facility], andre is president, 2016 but corrects self. Oriented to person Speech fluent with no evidence of aphasia Cranial Nerves smile and eye brow raise symmetric, tongue midline Reflexes: Deep tendon reflexes were symmetrical and graded 2/5. Plantar responses were flexor. Sensory: GT proprioception intact, cool touch and vibration intact Coordination: finger to nose without bipass or tremor Gait/Stance: sitting up in bed Motor: Negative for pronator drift of out stretched arms with eyes closed. Strength: biceps, triceps, hand media buyer 5/5 bilaterally hip flex patellar flex ext , plantar flex ext 5/5 bilaterally Laboratory Results Past 24 Hours: 11/28/16 09:00 Red Blood Count 4.59, Mean Corpuscular Volume 95.2, Mean Corpuscular Hemoglobin 32.0, Mean Corpuscular Hemoglobin Concent 33.6, Mean Platelet Volume 11.6, Neutrophils (%) (Auto) 82.4, Lymphocytes (%) (Auto) 10.6, Monocytes (%) (Auto) 6.5, Eosinophils (%) (Auto) 0.0, Basophils (%) (Auto) 0.2, Neutrophils # (Auto) 7.89, Lymphocytes # (Auto) 1.02, Monocytes # (Auto) 0.62, Eosinophils # (Auto) 0.00, Basophils # (Auto) 0.02 11/28/16 09:00 Test 11/28/16 08:35 11/28/16 09:00 Urine Color DK YELLOW Urine Appearance TURBID (CLEAR) Urine pH 5.0 (4.5-7.5) Urine Specific [place] 1.017 (1.000-1.030) Urine Protein TRACE (NEG) Urine Glucose (UA) NEG (NEG) Urine Ketones TRACE (NEG) Urine Occult Blood 2+ (NEG) Urine Nitrite NEG (NEG) Urine Bilirubin NEG (NEG) Urine Urobilinogen NEG (NEG) Urine Leukocyte Esterase LARGE (NEG) Urine WBC (Auto) >30 /hpf (0-5) Urine RBC (Auto) 0-4 /hpf (0-4) Urine Hyaline Casts (Auto) 1-5 /lpf (0-5) Urine Epithelial Cells (Auto) >30 /lpf (0-5) Urine Bacteria (Auto) 4+ (NEG) White Blood Count 9.58 K/uL (4.8-10.8) Red Blood Count 4.59 M/uL (4.7-6.1) Hemoglobin 14.7 g/dL (14.0-18.0) Hematocrit 43.7 % (42-52) Mean Corpuscular Volume 95.2 fL (80-100) Mean Corpuscular Hemoglobin 32.0 pg (25-34) Mean Corpuscular Hemoglobin Concent 33.6 g/dl (32-36) Platelet Count 150 K/uL (130-400) Mean Platelet Volume 11.6 fL (7.4-10.4) Neutrophils (%) (Auto) 82.4 % Lymphocytes (%) (Auto) 10.6 % Monocytes (%) (Auto) 6.5 % Eosinophils (%) (Auto) 0.0 % Basophils (%) (Auto) 0.2 % Neutrophils # (Auto) 7.89 K/uL (1.4-6.5) Lymphocytes # (Auto) 1.02 K/uL (1.2-3.4) Monocytes # (Auto) 0.62 K/uL (0.11-0.59) Eosinophils # (Auto) 0.00 K/uL (0-0.5) Basophils # (Auto) 0.02 K/uL (0-0.2) RDW Standard Deviation 49.9 fL (36.4-46.3) RDW Coefficient of Variation 14.3 % (11.5-14.5) Immature Granulocyte % (Auto) 0.3 % Immature Granulocyte # (Auto) 0.03 K/uL (0.00-0.02) Prothrombin Time 13.4 SECONDS (9.0-12.0) Prothromb Time International Ratio 1.2 (0.9-1.1) Activated Partial Thromboplast Time 31.2 SECONDS (21.0-31.0) Partial Thromboplastin Ratio 1.2 Anion Gap 7.0 mmol/L (3-11) Est Creatinine Clear Calc Drug Dose 64.6 ml/min Estimated GFR () 69.1 Estimated GFR (Non- 59.6 BUN/Creatinine Ratio 29.5 (10-20) Estimated Average Glucose 117 mg/dl Hemoglobin A1c 5.7 % (4.5-5.6) Calcium Level 9.0 mg/dl (8.5-10.1) Total Bilirubin 2.0 mg/dl (0.2-1) Direct Bilirubin 0.9 mg/dl (0-0.2) Aspartate Amino Transf (AST/SGOT) 33 U/L (15-37) Alanine Aminotransferase (ALT/SGPT) 25 U/L (12-78) Alkaline Phosphatase 37 U/L (45-117) Troponin I 0.033 ng/ml (0-0.045) Total Protein 7.0 gm/dl (6.4-8.2) Albumin 3.3 gm/dl (3.4-5.0) Imaging CT head- No intra or extra-axial mass lesions are visualized. There is no CT evidence of acute cortical infarction. There is no evidence of midline shift. There is no acute hemorrhage. No calvarial fractures are visualized. There are minor white matter hypo densities likely on a small vessel basis. There is dense calcification/ossification of the falx. There is no evidence of pathologic ventricular dilatation. There is no evidence of acute sinusitis Impression 71 year old male s/p increased confusion with UTI Plan 1. confusion appears to be resolving 2. UTI current treatment - ceftriaxone-sensitivities pending 3. INR 1.2 but currently not on coumadin 4. currently plavix 75 mg and aspirin 81 mg s/p GI bleed 5. recent MRI [facility] system with aging changes 6. care mgt - should be follow up on current home situation may not be safe 7. Psych consult should be considered - uncertain what the family situation is may need intervention I have seen and discussed above patient with Dr Vipul Bermudez, neurology Reviewed and patient interviewed and examined He is pleasant but appears a bit dazed and a bit unclear as to what hs been going on but suggests that his has "overreacted " records are a bit sparse as the clinic notes are not transcribed but the working diagnosis per Dr Fuentes is minimal cognitive impairment and right trigeminal neuralgia well controlled on his current tegretol I have the impression that there has been some marital strife recently and we may need to consider a psych or social service evaluation to clarify things Could have a uti per labs so there may be infectious issues contributing to a step off in his mildly impaired mental status and certainly depite a "normal for age" recent mri there may have been some embolic events after the recent scan so w might consider a noncontrast mri if indeed the history is consistent with a more acute change in his status. We will check back tomorrow when hopefully some history is available and will check a tegretol level to be sure there is no emergence of toxicity that might occur with poor comliance due to cognitive impairment. Vipul Bermudez MD
[2016-11-28] MEDS: AVODART: ORDER AWAITING ACTION SCH ×2 (16:00→23:56)
[2016-11-28] MEDS: CARBAMAZEPINE 200 MG TAB PO SCH ×2 (16:15→20:42)
[2016-11-28] MEDS: ASPIRIN 81 MG ECTAB PO SCH (16:19)
[2016-11-28] MEDS: FUROSEMIDE 40 MG TAB PO SCH (16:20)
[2016-11-28] MEDS: AMLODIPINE BESYLATE 5 MG TAB PO SCH (16:20)
[2016-11-28] MEDS: METOPROLOL SUCC 50MG EXT REL TAB PO SCH (16:21)
[2016-11-28] MEDS: LISINOPRIL 40 MG TAB PO SCH (16:21)
[2016-11-28] MEDS: CLOPIDOGREL BISULFATE 75 MG TAB PO SCH (16:21)
--- NOTE | 2016-11-28 17:25 | History and Physical ---
History & Physical Date & Time of Service: November 28, 2016 ~ 12:00 Chief Complaint: Confusion Primary Care Physician: Ashvin Ayala M.D.(JACOB) History of Present Illness 71 year old male who presents to the ER with confusion. Some of the history is obtained from ER documentation as patient's is currently not at the bedside and did not answer the phone when I called. Patient has been having episodes of waxing and waning confusion for the past few months. He was been seen by neurology and had an MRI that showed age related changes. This morning patient's confusion was acutely worse. Patient reports yesterday he felt tired and did note some confusion yesterday and today but denies that it was to the degree his reports. He also reports that his asked for a divorce last week. He denies any other symptoms. He denies unilateral weakness, numbness, tingling, or slurred speech. No chest pain or shortness of breath. He denies lightheadedness, dizziness, diaphoresis, or syncopal events. No abdominal pain, nausea, vomiting or diarrhea. He denies fever and chills. No urinary symptoms. In the ER, patient had a head CT that was negative. U/A suggests UTI. He is afebrile with normal WBC. He was given IVF and Rocephin. Past Medical/Surgical History Medical Problems: (1) Atrial fibrillation Status: Chronic (2) Bimalleolar ankle fracture Status: Resolved (3) BPH (benign prostatic hypertrophy) Status: Chronic (4) Coronary artery disease Permanent Comment: CABG x 2 stents to LAD and ramus intermediate cath 2015 - LAD stent restenosis, s/p STACI Status: Chronic (5) Dyslipidemia Status: Chronic (6) Gout Status: Chronic (7) History of peptic ulcer disease Status: Chronic (8) Hypertension Status: Chronic (9) Sleep apnea Status: Chronic (10) Trigeminal neuralgia Status: Chronic Surgical Problems: (1) History of back surgery Status: Chronic (2) Status post total knee replacement Status: Chronic Family History Bipolar disorder MOTHER Myocardial infarction FATHER Social History Smoking Status: Never Smoker Alcohol Use: none Marital Status: Housing status: lives with family Immunizations History of Influenza Vaccine: Yes Influenza Vaccine Date: May 03, 2016 History of Tetanus Vaccine?: Yes Tetanus Immunization Date: Apr 16, 2010 History of Pneumococcal: Yes Pneumococcal Date: Aug 21, 2015 Allergies Coded Allergies: No Known Allergies (Unverified , 11/01/16) Home Medications Scheduled Amlodipine (Norvasc), 5 MG PO QAM Aspirin (Aspirin EC Low Dose), 81 MG PO QAM Atorvastatin (Lipitor), 20 MG PO DAILY Carbamazepine (Tegretol), 200 MG PO QID Cholecalciferol (Vitamin D), 1,000 UNITS PO DAILY Clopidogrel (Plavix), 75 MG PO QAM Colchicine (Colchicine), 0.6 MG PO QAM Dutasteride (Avodart), 0.5 MG PO DAILY Fenofibrate (Tricor ), 145 MG PO QAM Ferrous Sulfate (Kp Ferrous Sulfate), 1 TAB PO DAILY Furosemide (Lasix), 40 MG PO DAILY Lisinopril (Lisinopril), 40 MG PO QAM Magnesium Oxide (Mag-Ox), 400 MG PO DAILY Metoprolol Succ (Toprol Xl) (Toprol-Xl ), 100 MG PO DAILY Metoprolol Succinate (Toprol Xl), 50 MG PO DAILY Pantoprazole (Protonix), 40 MG PO QPM Potassium Chloride Microencaps (Potassium Chloride Er), 20 MEQ PO BID Spironolactone (Aldactone), 12.5 MG PO QAM Tamsulosin HCl (Tamsulosin HCl), 0.4 MG PO HS Scheduled PRN Acetaminophen (Tylenol), 650 MG PO Q4 PRN for Pain Nitroglycerin (Nitrostat), 0.4 MG UT PRN PRN for Chest Pain Review of Systems ROS per HPI, all other systems reviewed and negative Physical Exam Vital Signs Date Time Temp Pulse Resp B/P Pulse Ox O2 Delivery O2 Flow Rate FiO2 11/28/16 13:12 91 20 150/78 98 11/28/16 13:03 91 20 150/79 99 Room Air 11/28/16 11:22 82 11/28/16 10:51 78 18 156/92 95 Room Air 11/28/16 10:40 36.8 92 18 156/92 94 Room Air 11/28/16 10:08 79 18 163/84 94 Room Air 11/28/16 08:41 36.8 99 22 148/79 95 Room Air 11/28/16 08:39 95 Room Air 11/28/16 08:35 89 General Appearance: no apparent distress Head: normocephalic Eyes: normal inspection ENT: hearing grossly normal Neck: supple, no JVD Respiratory/Chest: lungs clear, normal breath sounds, no respiratory distress Cardiovascular: regular rate, rhythm, no edema, normal peripheral pulses Abdomen/GI: normal bowel sounds, non tender, soft Extremities/Musculoskelatal: normal inspection, no calf tenderness Neurologic/Psych: no motor/sensory deficits, alert, + disoriented (initially states year as 2006, then corrects to 2017; otherwise A/O x 3 ), + pertinent finding (some mild word finding noted, no focal deficits on exam) Skin: normal color, warm/dry Diagnostics Laboratory Results Results Past 24 Hours Test 11/28/16 08:35 11/28/16 09:00 Range/Units Urine Color DK YELLOW Urine Appearance TURBID CLEAR Urine pH 5.0 4.5-7.5 Urine Specific [place] 1.017 1.000-1.030 Urine Protein TRACE NEG Urine Glucose (UA) NEG NEG Urine Ketones TRACE NEG Urine Occult Blood 2+ NEG Urine Nitrite NEG NEG Urine Bilirubin NEG NEG Urine Urobilinogen NEG NEG Urine Leukocyte Esterase LARGE NEG Urine WBC (Auto) >30 0-5 /hpf Urine RBC (Auto) 0-4 0-4 /hpf Urine Hyaline Casts (Auto) 1-5 0-5 /lpf Urine Epithelial Cells (Auto) >30 0-5 /lpf Urine Bacteria (Auto) 4+ NEG White Blood Count 9.58 4.8-10.8 K/uL Red Blood Count 4.59 4.7-6.1 M/uL Hemoglobin 14.7 14.0-18.0 g/dL Hematocrit 43.7 42-52 % Mean Corpuscular Volume 95.2 80-100 fL Mean Corpuscular Hemoglobin 32.0 25-34 pg Mean Corpuscular Hemoglobin Concent 33.6 32-36 g/dl Platelet Count 150 130-400 K/uL Mean Platelet Volume 11.6 7.4-10.4 fL Neutrophils (%) (Auto) 82.4 % Lymphocytes (%) (Auto) 10.6 % Monocytes (%) (Auto) 6.5 % Eosinophils (%) (Auto) 0.0 % Basophils (%) (Auto) 0.2 % Neutrophils # (Auto) 7.89 1.4-6.5 K/uL Lymphocytes # (Auto) 1.02 1.2-3.4 K/uL Monocytes # (Auto) 0.62 0.11-0.59 K/uL Eosinophils # (Auto) 0.00 0-0.5 K/uL Basophils # (Auto) 0.02 0-0.2 K/uL RDW Standard Deviation 49.9 36.4-46.3 fL RDW Coefficient of Variation 14.3 11.5-14.5 % Immature Granulocyte % (Auto) 0.3 % Immature Granulocyte # (Auto) 0.03 0.00-0.02 K/uL Prothrombin Time 13.4 9.0-12.0 SECONDS Prothromb Time International Ratio 1.2 0.9-1.1 Activated Partial Thromboplast Time 31.2 21.0-31.0 SECONDS Partial Thromboplastin Ratio 1.2 Sodium Level 141 136-145 mmol/L Potassium Level 3.8 3.5-5.1 mmol/L Chloride Level 106 98-107 mmol/L Carbon Dioxide Level 28 21-32 mmol/L Anion Gap 7.0 3-11 mmol/L Blood Urea Nitrogen 35 7-18 mg/dl Creatinine 1.20 0.60-1.40 mg/dl Est Creatinine Clear Calc Drug Dose 64.6 ml/min Estimated GFR () 69.1 Estimated GFR (Non- 59.6 BUN/Creatinine Ratio 29.5 10-20 Random Glucose 111 70-99 mg/dl Estimated Average Glucose 117 mg/dl Hemoglobin A1c 5.7 4.5-5.6 % Calcium Level 9.0 8.5-10.1 mg/dl Total Bilirubin 2.0 0.2-1 mg/dl Direct Bilirubin 0.9 0-0.2 mg/dl Aspartate Amino Transf (AST/SGOT) 33 15-37 U/L Alanine Aminotransferase (ALT/SGPT) 25 12-78 U/L Alkaline Phosphatase 37 45-117 U/L Troponin I 0.033 0-0.045 ng/ml Total Protein 7.0 6.4-8.2 gm/dl Albumin 3.3 3.4-5.0 gm/dl Microbiology Results 11/28/16 Urine Culture, Received Pending Diagnostic Radiology CT HEAD IMPRESSION: No acute intracranial findings CXR IMPRESSION: Stable mild elevation of the right hemidiaphragm. No acute findings. Impression Assessment and Plan ALTERED MENTAL STATUS, UTI - admit to tele - patient with history of waxing and waning confusion for the past few months, presenting today with acute worsening of his confusion; U/A in the ER suggests UTI - has been following with neurology recently for mild cognitive impairment, had MRI on 10/29 that showed age related changes - currently no focal deficits noted on exam, just some mild word finding - suspect patient's symptoms are due to a metabolic encephalopathy from UTI however patient high risk for CVA - has afib, but is not anticoagulated due to GI bleed and falls; he is on ASA and Plavix - neuro checks - could consider MRI if patient does not improve - case discussed with Kimberly Whaley PA-C (neuro) - input appreciated - s/p Rocephin in the ER, will continue with; adjust per culture results; no signs of sepsis - will check PVRs; no flank pain, low suspicion for kidney stone ATRIAL FIBRILLATION - rate controlled on metoprolol, will continue - not anticoagulated due to GI bleed and falls CAD - stable, no reports of chest pain - continue ASA, Plavix, beta herminia, and statin HTN - BP controlled, continue amlodipine, lisinopril, and metoprolol RIGHT SIDED CHF - appears euvolemic, continue diuretics TRIGEMINAL NEURALGIA - continue Tegretol BPH - continue home meds GOUT - continue home meds DVT PROPHYLAXIS - SCDs due to hx of GI bleed CODE STATUS - Patient is a full code as per my discussion with him. DISPO - In my clinical judgment this beneficiary meets acute admission criteria, established by [facility], that includes being hospitalized through two midnights. I have seen and evaluated the patient and discussed the case with the provider above. I agree with the assessment and plan as stated. The patient is not delirious on exam and appears to be improving clinically on the Rocephin. He is A& O to self only, and is up and walking around the room. Physical exam was unremarkable including no CVA tenderness, abdominal or flank pain and he remains afebrile and hemodynamically stable. DO Dexter Level of Care Telemetry Advanced Directives Existing Living Will: No Existing Power of Associate Faculty: No Resuscitation Status FULL RESUSCITATION VTE Prophylaxis VTE Risk Assessment Done? Y/N: Yes Risk Level: Moderate Given or contraindicated: SCD's, Contraindicated
[2016-11-28 20:00] VITALS: O2SAT 98
[2016-11-28 20:17] VITALS: BP 139/68; PULSE 91; TEMP 37.4; O2SAT 95
[2016-11-28] MEDS: PANTOprazole SOD 40 MG TAB PO SCH (20:42)
[2016-11-28] MEDS: POTASSIUM CHLORIDE 20 MEQ TABCR PO SCH (20:42)
[2016-11-28] MEDS: TAMSULOSIN HCL 0.4 MG CAP PO SCH (20:42)
[2016-11-29 00:09] VITALS: BP 113/56; PULSE 78; TEMP 37.4; O2SAT 92
[2016-11-29 06:05] LABS: HEMATOCRIT 39.5 % (42-52); MEAN CELL VOLUME 94.5 fL (80-100); MEAN CORPUSCULAR HEMOGLOBIN 31.6 pg (25-34); MEAN CORPUSCULAR HGB CONC 33.4 g/dl (32-36); MEAN PLATELET VOLUME 11.6 fL (7.4-10.4); PLATELET COUNT 133 K/uL (130-400); RED BLOOD COUNT 4.18 M/uL (4.7-6.1); WHITE BLOOD COUNT 8.85 K/uL (4.8-10.8)
[2016-11-29 06:45] LABS: BUN/CREATININE RATIO 35.1 (10-20); CALCIUM 8.9 mg/dl (8.5-10.1); CREATININE 0.95 mg/dl (0.60-1.40); POTASSIUM 3.6 mmol/L (3.5-5.1)
[2016-11-29 06:49] LABS: CHOLESTEROL/HDL RATIO 3.3
[2016-11-29 07:16] VITALS: BP 112/63; PULSE 115; TEMP 36.7; O2SAT 98
[2016-11-29] MEDS: CLOPIDOGREL BISULFATE 75 MG TAB PO SCH (07:52)
[2016-11-29] MEDS: ATORVASTATIN 20 MG TAB PO SCH (07:52)
[2016-11-29] MEDS: METOPROLOL SUCC 50MG EXT REL TAB PO SCH (07:52)
[2016-11-29] MEDS: CARBAMAZEPINE 200 MG TAB PO SCH ×4 (07:52→20:59)
[2016-11-29] MEDS: POTASSIUM CHLORIDE 20 MEQ TABCR PO SCH ×2 (07:53→20:59)
[2016-11-29] MEDS: CHOLECALCIFEROL 1000 INTER.UNIT TAB PO SCH (07:53)
[2016-11-29] MEDS: SPIRONOLACTONE 25 MG TAB PO SCH (07:54)
[2016-11-29] MEDS: FENOFIBRATE 145 MG TAB PO SCH (07:55)
[2016-11-29] MEDS: MAGNESIUM OXIDE 400 MG TAB PO SCH (07:55)
[2016-11-29] MEDS: AMLODIPINE BESYLATE 5 MG TAB PO SCH (07:55)
[2016-11-29] MEDS: LISINOPRIL 40 MG TAB PO SCH (07:55)
[2016-11-29] MEDS: FERROUS SULFATE 325 MG TAB PO SCH (07:55)
[2016-11-29] MEDS: COLCHICINE 0.6 MG TAB PO SCH (07:56)
[2016-11-29] MEDS: FUROSEMIDE 40 MG TAB PO SCH (07:56)
[2016-11-29] MEDS: AVODART: ORDER AWAITING ACTION SCH (08:00)
[2016-11-29] MEDS ORDERED: METOPROLOL SUCC 50MG EXT REL TAB PO SCH (09:00)
[2016-11-29] MEDS: ASPIRIN 81 MG ECTAB PO SCH (10:09)
[2016-11-29] MEDS: CEFTRIAXONE SOD INJ 1 GM in DEXTROSE 5% ADD-VANTAGE 50ML 50 ML IV SCH (10:10)
[2016-11-29 12:40] VITALS: BP 94/55; PULSE 67; TEMP 36.6; O2SAT 94
--- NOTE | 2016-11-29 14:10 | Clinical Documentation Query ---
CLINICAL DOCUMENTATION QUERY Dr. SANDY, In your clinical opinion is this patient being managed for: ( + ) chronic R sided CHF with preserved EF ( ) Other explanation of clinical findings (Please Explain) ( ) Unable to determine (Please Define) ( ) Need to Discuss ( ) Not Agree The medical record reflects the following clinical findings, treatment, and risk factors. Clinical Indicators: H/P indicates pt with R sided CHF. Review of ECHO from October 2016 showed EF of 65-70%. Treatment:chronic meds include: norvasc, lasix, lisinopril, toprol xl Risk Factors: age, A fib, HTN Please clarify and document your clinical opinion in the progress notes and discharge summary. Terms such as "probable", "suspected", "likely", "questionable", "possible", or "still to be ruled out" are acceptable. IF IN AGREEMENT, YOU MUST DOCUMENT ABOVE DIAGNOSTIC STATEMENT IN DAILY PROGRESS NOTES AND DISCHARGE SUMMARY. This document is not part of the patient's record. Thank You, Vandana Rios RN [phone]
[2016-11-29 15:09] VITALS: BP 110/61; PULSE 69; TEMP 36.6; O2SAT 96
--- NOTE | 2016-11-29 15:13 | Neurology Progress Notes ---
Neurology Progress Note Date of Service November 29, 2016. Aracelis Lock is a 71 year old male PMH- BPH, confusion, trigeminal neuralgia, HTN, GI bleed, CAD, afib, currently on plavix and aspirin. Who presents who was brought to the ED with MS change that worsened. reported that the patient has been doing repetitive actions because he forgets that he already did them. He states his was making dinner but he didn't feel like eating and she got made because she didn't leave the living room and then went up to his room without eating. She tried to get him up in the am and he wouldn't get OOB. He is not eating well per his account. He did miss some of his medications two days ago because they were still in his pill container. He states she told him she wanted to get a divorce two days ago and he states this really got him confused. He is still confused why she would say this to him. He remembers having the MRI that was ordered by Dr Fuentes in Neurology and the results just showed some normal aging. He states he was up and walking with physical therapy and feels he is back to his baseline. He is not sure if it was the antibiotics or just having a rest from the issues at home. denies, CP, SOB, abdominal pain, one sided weakness, numbness tingling, swallowing issues, vision changes, bowel or bladder issues, no swallowing or slurred speech Objective Date Time Temp Pulse Resp B/P Pulse Ox O2 Delivery O2 Flow Rate FiO2 11/29/16 12:40 36.6 67 18 94/55 94 Room Air 11/29/16 12:00 Room Air 11/29/16 08:00 Room Air 11/29/16 07:16 36.7 115 18 112/63 98 Room Air 11/29/16 04:00 Room Air 11/29/16 00:09 37.4 78 20 113/56 92 Room Air 11/29/16 00:00 Room Air 11/28/16 20:17 37.4 91 20 139/68 95 11/28/16 20:00 98 Room Air 11/28/16 16:00 Room Air Last 24 Hours Test 11/28/16 17:22 11/29/16 05:54 Carbamazepine (Tegretol) Level 5.7 mcg/ml White Blood Count 8.85 K/uL Red Blood Count 4.18 M/uL Hemoglobin 13.2 g/dL Hematocrit 39.5 % Mean Corpuscular Volume 94.5 fL Mean Corpuscular Hemoglobin 31.6 pg Mean Corpuscular Hemoglobin Concent 33.4 g/dl RDW Standard Deviation 49.0 fL RDW Coefficient of Variation 14.1 % Platelet Count 133 K/uL Mean Platelet Volume 11.6 fL Sodium Level 142 mmol/L Potassium Level 3.6 mmol/L Chloride Level 107 mmol/L Carbon Dioxide Level 29 mmol/L Anion Gap 6.0 mmol/L Blood Urea Nitrogen 33 mg/dl Creatinine 0.95 mg/dl Est Creatinine Clear Calc Drug Dose 81.4 ml/min Estimated GFR () 91.7 Estimated GFR (Non- 79.1 BUN/Creatinine Ratio 35.1 Random Glucose 111 mg/dl Calcium Level 8.9 mg/dl Triglycerides Level 113 mg/dl Cholesterol Level 107 mg/dl HDL Cholesterol 32 mg/dl LDL Cholesterol, Calculated 52 mg/dl VLDL Cholesterol, Calculated 23 mg/dl Cholesterol/HDL Ratio 3.3 Imaging: no new imaging Exam: Physical Exam: Constitutional: appearance nourished, healthy and normal Ears, Nose, Mouth and Throat: mucous membranes moist, no injection and skin normal, eyes normal Cardiovascular: normal S-1 and S-2 and regular rate and rhythm Respiratory: clear to auscultation (CTA) and no rales, rhonchi or wheeze Musculoskeletal: no peripheral edema Skin: no stigmata of neurocutaneous disease noted and normal and intact Eyes: extraocular muscles intact (EOMI) and pupils equal, round and reactive to light (PERRL) NEUROLOGIC EXAMINATION: Mental status: Alert and interactive Oriented to [facility], date 2017, knows he lives in [place], can stick out tongue, close eyes and point to the ceiling with his left hand Oriented to person Speech dysmetric with some complex words Cranial Nerves smile eye brow raise symmetric, tongue midline Reflexes: Deep tendon reflexes were symmetrical and graded 2/5. Plantar responses were flexor. Coordination: finger to nose without bipass Gait/Stance: sitting up in bed Strength: biceps triceps hand knit goods mender 5/5 bilaterally, hip flex plantar flex ext bilaterally 5/5 Current Inpatient Medications Medications (Trade) Dose Ordered Sig/Elsi Route Start Time Stop Time Status Last Admin Dose Admin Acetaminophen (Tylenol Tab) 650 mg Q4H PRN PO 11/28/16 12:30 12/28/16 12:29 Ondansetron HCl 4 mg 4 mg Q6H PRN IV 11/28/16 12:30 12/28/16 12:29 Ceftriaxone Sodium/Dextrose (Rocephin Inj/ Dextrose Add-[place] 50ML) 50 ml @ 100 mls/hr DAILY@1000 IV 11/29/16 10:00 12/08/16 09:59 11/29/16 10:10 100 MLS/HR Amlodipine Besylate (Norvasc Tab) 5 mg QAM PO 11/29/16 09:00 12/29/16 08:59 11/29/16 07:55 5 MG Aspirin (Ecotrin Tab) 81 mg QAM PO 11/29/16 09:00 12/29/16 08:59 11/29/16 10:09 81 MG Atorvastatin Calcium (Lipitor Tab) 20 mg DAILY PO 11/29/16 09:00 12/29/16 08:59 11/29/16 07:52 20 MG Carbamazepine (Tegretol Tab) 200 mg QID PO 11/28/16 17:00 12/28/16 16:59 11/29/16 14:09 200 MG Cholecalciferol (Vitamin D Tab) 1,000 inter.unit DAILY PO 11/29/16 09:00 12/29/16 08:59 11/29/16 07:53 1,000 INTER.UNIT Clopidogrel Bisulfate (plAVix TAB) 75 mg QAM PO 11/29/16 09:00 12/29/16 08:59 11/29/16 07:52 75 MG Colchicine (Colchicine Tab) 0.6 mg QAM PO 11/29/16 09:00 12/29/16 08:59 11/29/16 07:56 0.6 MG Fenofibrate (Tricor Tab) 145 mg QAM PO 11/29/16 09:00 12/29/16 08:59 11/29/16 07:55 145 MG Furosemide (Lasix Tab) 40 mg DAILY PO 11/29/16 09:00 12/29/16 08:59 11/29/16 07:56 40 MG Lisinopril (Zestril Tab) 40 mg QAM PO 11/29/16 09:00 12/29/16 08:59 11/29/16 07:55 40 MG Magnesium Oxide (Mag-Ox Tab) 400 mg DAILY PO 11/29/16 09:00 12/29/16 08:59 11/29/16 07:55 400 MG Metoprolol Succinate (Toprol Xl Tab) 150 mg DAILY PO 11/29/16 09:00 12/29/16 08:59 11/29/16 07:52 150 MG Pantoprazole Sodium (Protonix Tab) 40 mg QPM PO 11/28/16 21:00 12/28/16 20:59 11/28/16 20:42 40 MG Potassium Chloride (Klor-Con Tab) 20 meq BID PO 11/28/16 21:00 12/28/16 20:59 11/29/16 07:53 20 MEQ Spironolactone (Aldactone Tab) 12.5 mg QAM PO 11/29/16 09:00 12/29/16 08:59 11/29/16 07:54 12.5 MG Tamsulosin HCl (Flomax Cap) 0.4 mg HS PO 11/28/16 21:00 12/28/16 20:59 11/28/16 20:42 0.4 MG Ferrous Sulfate (Feosol Tab) 325 mg DAILY PO 11/29/16 09:00 12/29/16 08:59 11/29/16 07:55 325 MG Dutasteride (Avodart) 0.5 mg DAILY PO 11/30/16 09:00 12/30/16 08:59 Impression 71 year old male s/p increased confusion with UTI Plan 1. confusion appears to be resolving with antibiotic therapy 2. UTI current treatment - ceftriaxone-sensitivities pending 3. INR 1.2 but currently not on coumadin- hx afib and stopped for GI bleed 4. currently plavix 75 mg and aspirin 81 mg s/p GI bleed 5. recent MRI [facility] system with aging changes 6. care mgt - should be follow up on current home situation may not be safe 7. Psych consult should be considered - uncertain what the family situation is may need intervention 8. patient states planning for discharge tomorrow I have seen and discussed above patient with Dr Vipul Bermudez, neurology Patient seen and reviewed. Confusion superimposed upon MCI due likely to uti which is now clearing and tegretol level is fine eliminating this as a potential cause Cannot exclude an embolic shower but unless cardiology would consider him a candidate for anticoagulation beyond asa and plavix I see no value in repeating an mri at this time. We will sign off for now and see as scheduled with Dr Fuentes in the future Vipul Bermudez MD
--- NOTE | 2016-11-29 16:47 | Progress Note ---
Internal Med Progress Note Date of Service: November 29, 2016. Provider Documentation: SUBJECTIVE: The patient was seen and examined Confusion is resolved Offered Psychiatric evaluation but patient declined Denies any symptoms OBJECTIVE: Vital Signs-as noted below Exam: General-no distress Eyes-normal ENT-normal Neck-supple Lungs-Clear to auscultate bilaterally Heart-Regular,no murmur appreciated Abdomen-Benign,no tenderness in Renal angles or hypogastrium Extremities-no edema Neuro-AAOx3 No focal neuro deficit Lab data as noted below. ASSESSMENT & PLAN: ALTERED MENTAL STATUS Secondary to UTI - patient with history of waxing and waning confusion for the past few months, presenting today with acute worsening of his confusion; - has been following with neurology recently for mild cognitive impairment, had MRI on 10/29 that showed age related changes - suspect patient's symptoms are due to a metabolic encephalopathy from UTI -however patient high risk for CVA - has afib, but is not anticoagulated due to GI bleed and falls; he is on -ASA and Plavix - could consider MRI if patient does not improve - appreciate Neurology input -Declined Psychiatry evaluation now - s/p Rocephin in the ER and continuing -Urine Culture -E Cloi ,Sensitivity pending ATRIAL FIBRILLATION - rate controlled on metoprolol, will continue - not anticoagulated due to GI bleed and falls CAD - stable, no reports of chest pain - continue ASA, Plavix, beta herminia, and statin -no acute symptoms HTN - BP controlled, continue amlodipine, lisinopril, and metoprolol RIGHT SIDED CHF -chronic R sided CHF with preserved EF - appears euvolemic, continue diuretics TRIGEMINAL NEURALGIA - continue Tegretol -no acute attack BPH - continue home meds GOUT - continue home meds DVT PROPHYLAXIS - SCDs due to hx of GI bleed CODE STATUS - Patient is a full code as per my discussion with him. DISPO Likely discharge tomorrow Vital Signs: Date Time Temp Pulse Resp B/P Pulse Ox O2 Delivery O2 Flow Rate FiO2 11/29/16 16:00 Room Air 11/29/16 15:09 36.6 69 18 110/61 96 Room Air 11/29/16 12:40 36.6 67 18 94/55 94 Room Air 11/29/16 12:00 Room Air 11/29/16 08:00 Room Air 11/29/16 07:16 36.7 115 18 112/63 98 Room Air 11/29/16 04:00 Room Air 11/29/16 00:09 37.4 78 20 113/56 92 Room Air 11/29/16 00:00 Room Air 11/28/16 20:17 37.4 91 20 139/68 95 11/28/16 20:00 98 Room Air Lab Results: Results Past 24 Hours Test 11/29/16 05:54 Range/Units White Blood Count 8.85 4.8-10.8 K/uL Red Blood Count 4.18 4.7-6.1 M/uL Hemoglobin 13.2 14.0-18.0 g/dL Hematocrit 39.5 42-52 % Mean Corpuscular Volume 94.5 80-100 fL Mean Corpuscular Hemoglobin 31.6 25-34 pg Mean Corpuscular Hemoglobin Concent 33.4 32-36 g/dl RDW Standard Deviation 49.0 36.4-46.3 fL RDW Coefficient of Variation 14.1 11.5-14.5 % Platelet Count 133 130-400 K/uL Mean Platelet Volume 11.6 7.4-10.4 fL Sodium Level 142 136-145 mmol/L Potassium Level 3.6 3.5-5.1 mmol/L Chloride Level 107 98-107 mmol/L Carbon Dioxide Level 29 21-32 mmol/L Anion Gap 6.0 3-11 mmol/L Blood Urea Nitrogen 33 7-18 mg/dl Creatinine 0.95 0.60-1.40 mg/dl Est Creatinine Clear Calc Drug Dose 81.4 ml/min Estimated GFR () 91.7 Estimated GFR (Non- 79.1 BUN/Creatinine Ratio 35.1 10-20 Random Glucose 111 70-99 mg/dl Calcium Level 8.9 8.5-10.1 mg/dl Triglycerides Level 113 0-150 mg/dl Cholesterol Level 107 0-200 mg/dl HDL Cholesterol 32 mg/dl LDL Cholesterol, Calculated 52 mg/dl VLDL Cholesterol, Calculated 23 mg/dl Cholesterol/HDL Ratio 3.3
[2016-11-29 20:22] VITALS: BP 116/64; PULSE 67; TEMP 36.7; O2SAT 94
[2016-11-29] MEDS: PANTOprazole SOD 40 MG TAB PO SCH (20:59)
[2016-11-29] MEDS: TAMSULOSIN HCL 0.4 MG CAP PO SCH (21:00)
[2016-11-30 00:15] VITALS: BP 141/68; PULSE 73; TEMP 36.3; O2SAT 97
[2016-11-30 04:28] VITALS: BP 147/75; PULSE 64; TEMP 36.4; O2SAT 96
[2016-11-30 06:01] LABS: MEAN CELL VOLUME 95.9 fL (80-100); MEAN CORPUSCULAR HEMOGLOBIN 30.7 pg (25-34); MEAN PLATELET VOLUME 11.9 fL (7.4-10.4); PLATELET COUNT 140 K/uL (130-400); RED BLOOD COUNT 4.17 M/uL (4.7-6.1); WHITE BLOOD COUNT 5.41 K/uL (4.8-10.8)
[2016-11-30 06:34] LABS: BUN/CREATININE RATIO 33.3 (10-20); CALCIUM 8.7 mg/dl (8.5-10.1); CREATININE 1.1 mg/dl (0.60-1.40); POTASSIUM 4.3 mmol/L (3.5-5.1)
[2016-11-30 07:28] VITALS: BP 134/70; PULSE 67; TEMP 36.8; O2SAT 98
[2016-11-30] MEDS ORDERED: DUTASTERIDE 0.5 MG PO SCH (09:00)
[2016-11-30] MEDS: CARBAMAZEPINE 200 MG TAB PO SCH ×3 (09:03→16:56)
[2016-11-30] MEDS: SPIRONOLACTONE 25 MG TAB PO SCH (09:04)
[2016-11-30] MEDS: POTASSIUM CHLORIDE 20 MEQ TABCR PO SCH (09:05)
[2016-11-30] MEDS: METOPROLOL SUCC 50MG EXT REL TAB PO SCH (09:05)
[2016-11-30] MEDS: MAGNESIUM OXIDE 400 MG TAB PO SCH (09:05)
[2016-11-30] MEDS: FERROUS SULFATE 325 MG TAB PO SCH (09:06)
[2016-11-30] MEDS: ATORVASTATIN 20 MG TAB PO SCH (09:06)
[2016-11-30] MEDS: CLOPIDOGREL BISULFATE 75 MG TAB PO SCH (09:06)
[2016-11-30] MEDS: CHOLECALCIFEROL 1000 INTER.UNIT TAB PO SCH (09:06)
[2016-11-30] MEDS: FUROSEMIDE 40 MG TAB PO SCH (09:07)
[2016-11-30] MEDS: COLCHICINE 0.6 MG TAB PO SCH (09:07)
[2016-11-30] MEDS: LISINOPRIL 40 MG TAB PO SCH (09:07)
[2016-11-30] MEDS: FENOFIBRATE 145 MG TAB PO SCH (09:07)
[2016-11-30] MEDS: AMLODIPINE BESYLATE 5 MG TAB PO SCH (09:08)
[2016-11-30] MEDS: ASPIRIN 81 MG ECTAB PO SCH (09:08)
[2016-11-30] MEDS: CEFTRIAXONE SOD INJ 1 GM in DEXTROSE 5% ADD-VANTAGE 50ML 50 ML IV SCH (10:15)
[2016-11-30 11:35] VITALS: BP 108/65; PULSE 59; TEMP 36.4; O2SAT 94
[2016-11-30] MEDS ORDERED: CIPROFLOXACIN 500 MG TAB PO STA (12:15)
--- NOTE | 2016-11-30 12:21 | Progress Note ---
Internal Med Progress Note Date of Service: November 30, 2016. Provider Documentation: SUBJECTIVE: The patient was seen and examined Confusion is resolved Offered Psychiatric evaluation but patient declined Denies any symptoms Ambulating without any problem Wants to go home today OBJECTIVE: Vital Signs-as noted below Exam: General-no distress at rest Eyes-normal ENT-normal Neck-supple Lungs-Clear to auscultate bilaterally Heart-Regular,no murmur appreciated Abdomen-Benign,no tenderness in Renal angles or hypogastrium Extremities-no edema Neuro-AAOx3 No focal neuro deficit Lab data as noted below. ASSESSMENT & PLAN: ALTERED MENTAL STATUS Secondary to UTI - patient with history of waxing and waning confusion for the past few months, presenting today with acute worsening of his confusion; - has been following with neurology recently for mild cognitive impairment, had MRI on 10/29 that showed age related changes - suspect patient's symptoms are due to a metabolic encephalopathy from UTI -however patient high risk for CVA - has afib, but is not anticoagulated due to GI bleed and falls; he is on -ASA and Plavix - could consider MRI if patient does not improve - appreciate Neurology input -Declined Psychiatry evaluation now - s/p Rocephin in the ER and continuing -Urine Culture -E Cloi ,Sensitivity noted -Will start Cipro and continue for 7 days in total ATRIAL FIBRILLATION - rate controlled on metoprolol, will continue - not anticoagulated due to GI bleed and falls CAD - stable, no reports of chest pain - continue ASA, Plavix, beta herminia, and statin -no acute symptoms HTN - BP controlled, continue amlodipine, lisinopril, and metoprolol RIGHT SIDED CHF -chronic R sided CHF with preserved EF - appears euvolemic, continue diuretics TRIGEMINAL NEURALGIA - continue Tegretol -no acute attack BPH - continue home meds GOUT - continue home meds DVT PROPHYLAXIS - SCDs due to hx of GI bleed CODE STATUS - Patient is a full code as per my discussion with him. DISPO Will discharge today Vital Signs: Date Time Temp Pulse Resp B/P Pulse Ox O2 Delivery O2 Flow Rate FiO2 11/30/16 11:35 36.4 59 19 108/65 94 Room Air 11/30/16 07:35 Room Air 11/30/16 07:28 36.8 67 18 134/70 98 Room Air 11/30/16 04:28 36.4 64 18 147/75 96 Room Air 11/30/16 04:00 Room Air 11/30/16 00:15 36.3 73 18 141/68 97 Room Air 11/30/16 00:01 Room Air 11/29/16 20:22 36.7 67 18 116/64 94 Room Air 11/29/16 20:00 Room Air 11/29/16 16:00 Room Air 11/29/16 15:09 36.6 69 18 110/61 96 Room Air 11/29/16 12:40 36.6 67 18 94/55 94 Room Air Lab Results: Results Past 24 Hours Test 11/30/16 05:33 Range/Units White Blood Count 5.41 4.8-10.8 K/uL Red Blood Count 4.17 4.7-6.1 M/uL Hemoglobin 12.8 14.0-18.0 g/dL Hematocrit 40.0 42-52 % Mean Corpuscular Volume 95.9 80-100 fL Mean Corpuscular Hemoglobin 30.7 25-34 pg Mean Corpuscular Hemoglobin Concent 32.0 32-36 g/dl RDW Standard Deviation 49.6 36.4-46.3 fL RDW Coefficient of Variation 14.1 11.5-14.5 % Platelet Count 140 130-400 K/uL Mean Platelet Volume 11.9 7.4-10.4 fL Sodium Level 143 136-145 mmol/L Potassium Level 4.3 3.5-5.1 mmol/L Chloride Level 108 98-107 mmol/L Carbon Dioxide Level 31 21-32 mmol/L Anion Gap 4.0 3-11 mmol/L Blood Urea Nitrogen 37 7-18 mg/dl Creatinine 1.10 0.60-1.40 mg/dl Est Creatinine Clear Calc Drug Dose 70.2 ml/min Estimated GFR () 76.8 Estimated GFR (Non- 66.2 BUN/Creatinine Ratio 33.3 10-20 Random Glucose 101 70-99 mg/dl Calcium Level 8.7 8.5-10.1 mg/dl
[2016-11-30] MEDS ORDERED: LCTX PO (13:11)
[2016-11-30] MEDS ORDERED: CPR500 PO (13:11)
--- NOTE | 2016-11-30 13:13 | Discharge Instructions ---
Discharge Instructions Date of Service November 30, 2016. Admission Reason for Admission: Confusion Discharge Discharge Diagnosis / Problem: UTI,Confusion-resolved Discharge Goals Goal(s): Prevent Disease Progression Activity Recommendations Activity Limitations: resume your previous activity . Instructions / Follow-Up Instructions / Follow-Up Your Doctor's office will call you for appointment Current Hospital Diet Patient's current hospital diet: AHA Diet (Heart Healthy) Discharge Diet Recommended Diet: AHA Diet (Heart Healthy) Pending Studies Studies pending at discharge: no Laboratory Results Hemoglobin A1c Test 11/28/16 09:00 Range/Units Estimated Average Glucose 117 mg/dl Hemoglobin A1c 5.7 H 4.5-5.6 % Lipid Panel Test 11/29/16 05:54 Range/Units Triglycerides Level 113 0-150 mg/dl Cholesterol Level 107 0-200 mg/dl HDL Cholesterol 32 mg/dl Cholesterol/HDL Ratio 3.3 LDL Cholesterol, Calculated 52 mg/dl Medical Emergencies . Who to Call and When: Medical Emergencies: If at any time you feel your situation is an emergency, please call 911 immediately. . Non-Emergent Contact Non-Emergency issues call your: Primary Care Provider . Past History Medical & Surgical History: (1) UTI (urinary tract infection) (2) Hypertension (3) Coronary artery disease (4) Atrial fibrillation (5) Dyslipidemia (6) History of peptic ulcer disease (7) Gout (8) Right-sided congestive heart failure (9) Sleep apnea . "Provider Documentation" section prepared by Tonia Ewing. . VTE Core Measure Inpt VTE Proph given/why not?: SCD's, Contraindicated
[2016-11-30 14:05] VITALS: BP 108/65; PULSE 59; TEMP 36.4; O2SAT 94
[2016-11-30 15:24] VITALS: BP 119/68; PULSE 67; TEMP 36.3; O2SAT 96
--- NOTE | 2016-11-30 18:30 | Discharge Summary ---
Discharge Summary Date of Service November 30, 2016. Discharge Summary Admission Date: November 28, 2016 at 12:01 Discharge Date: November 30, 2016 Discharge Disposition: Home Principal Diagnosis: UTI,Acute Confusion-resolved Secondary Diagnoses/Problems: Please see H&P and Hospital Progress note Consultations: Neurology Medication Reconciliation New Medications: Lactobacillus Acidophilus (Lactinex) Tab 2 TAB PO BID for 7 Days, #30 TAB Ciprofloxacin (Ciprofloxacin HCl) 500 Mg Tab 500 MG PO BID for 5 Days, #10 TAB Continued Medications: Acetaminophen (Tylenol) 325 Mg Tab 650 MG PO Q4 PRN for Pain, TAB Amlodipine (Norvasc) 5 Mg Tab 5 MG PO QAM, TAB Aspirin (Aspirin EC Low Dose) 81 Mg Ectab 81 MG PO QAM for 30 Days, #30 TAB Atorvastatin (Lipitor) 20 Mg Tab 20 MG PO DAILY, TAB Carbamazepine (Tegretol) 200 Mg Tab 200 MG PO QID, TAB Cholecalciferol (Vitamin D) 1,000 Unit Tab 1000 UNITS PO DAILY Clopidogrel (Plavix) 75 Mg Tab 75 MG PO QAM, TAB Colchicine (Colchicine) 0.6 Mg Tab 0.6 MG PO QAM, TAB Dutasteride (Avodart) 0.5 Mg Cap 0.5 MG PO DAILY, CAP Fenofibrate (Tricor ) 145 Mg Tab 145 MG PO QAM, TAB Ferrous Sulfate (Kp Ferrous Sulfate) 325 Mg Tab 1 TAB PO DAILY for 30 Days, #30 TAB 3 Refills Furosemide (Lasix) 40 Mg Tab 40 MG PO DAILY, TAB Lisinopril (Lisinopril) 40 Mg Tab 40 MG PO QAM for 30 Days, #30 TAB Magnesium Oxide (Mag-Ox) 400 Mg Tab 400 MG PO DAILY for 30 Days, #30 TAB Metoprolol Succ (Toprol Xl) (Toprol-Xl ) 100 Mg Tabcr 100 MG PO DAILY, TAB TAKE WITH 50MG DAILY + 150MG DOSE. Metoprolol Succinate (Toprol Xl) 50 Mg Tabcr 50 MG PO DAILY, #30 TAB TAKE WITH 100MG DAILY = 150 MG DOSE Nitroglycerin (Nitrostat) 0.4 Mg Tab 0.4 MG UT PRN PRN for Chest Pain, BTL Pantoprazole (Protonix) 40 Mg Tab 40 MG PO QPM, #30 TAB Potassium Chloride Microencaps (Potassium Chloride Er) 20 Meq Tab 20 MEQ PO BID for 30 Days, #60 TAB 3 Refills Spironolactone (Aldactone) 25 Mg Tab 12.5 MG PO QAM, TAB TAKE HALF OF A 25MG TABLET Tamsulosin HCl (Tamsulosin HCl) 0.4 Mg Cap 0.4 MG PO HS Admission Information HPI (per Admitting provider): 71 year old male who presents to the ER with confusion. Some of the history is obtained from ER documentation as patient's is currently not at the bedside and did not answer the phone when I called. Patient has been having episodes of waxing and waning confusion for the past few months. He was been seen by neurology and had an MRI that showed age related changes. This morning patient's confusion was acutely worse. Patient reports yesterday he felt tired and did note some confusion yesterday and today but denies that it was to the degree his reports. He also reports that his asked for a divorce last week. He denies any other symptoms. He denies unilateral weakness, numbness, tingling, or slurred speech. No chest pain or shortness of breath. He denies lightheadedness, dizziness, diaphoresis, or syncopal events. No abdominal pain, nausea, vomiting or diarrhea. He denies fever and chills. No urinary symptoms. In the ER, patient had a head CT that was negative. U/A suggests UTI. He is afebrile with normal WBC. He was given IVF and Rocephin. Past Medical/Surgical History Medical Problems: (1) Atrial fibrillation Status: Chronic (2) Bimalleolar ankle fracture Status: Resolved (3) BPH (benign prostatic hypertrophy) Status: Chronic (4) Coronary artery disease Permanent Comment: CABG x 2 stents to LAD and ramus intermediate cath 2015 - LAD stent restenosis, s/p STCAI Status: Chronic (5) Dyslipidemia Status: Chronic (6) Gout Status: Chronic (7) History of peptic ulcer disease Status: Chronic (8) Hypertension Status: Chronic (9) Sleep apnea Status: Chronic (10) Trigeminal neuralgia Status: Chronic Surgical Problems: (1) History of back surgery Status: Chronic (2) Status post total knee replacement Status: Chronic Family History Bipolar disorder MOTHER Myocardial infarction FATHER Social History Smoking Status: Never Smoker Alcohol Use: none Marital Status: Housing status: lives with family Immunizations History of Influenza Vaccine: Yes Influenza Vaccine Date: May 03, 2016 History of Tetanus Vaccine?: Yes Tetanus Immunization Date: Apr 16, 2010 History of Pneumococcal: Yes Pneumococcal Date: Aug 21, 2015 Allergies Coded Allergies: No Known Allergies (Unverified , 11/01/16) Home Medications Scheduled Amlodipine (Norvasc), 5 MG PO QAM Aspirin (Aspirin EC Low Dose), 81 MG PO QAM Atorvastatin (Lipitor), 20 MG PO DAILY Carbamazepine (Tegretol), 200 MG PO QID Cholecalciferol (Vitamin D), 1,000 UNITS PO DAILY Clopidogrel (Plavix), 75 MG PO QAM Colchicine (Colchicine), 0.6 MG PO QAM Dutasteride (Avodart), 0.5 MG PO DAILY Fenofibrate (Tricor ), 145 MG PO QAM Ferrous Sulfate (Kp Ferrous Sulfate), 1 TAB PO DAILY Furosemide (Lasix), 40 MG PO DAILY Lisinopril (Lisinopril), 40 MG PO QAM Magnesium Oxide (Mag-Ox), 400 MG PO DAILY Metoprolol Succ (Toprol Xl) (Toprol-Xl ), 100 MG PO DAILY Metoprolol Succinate (Toprol Xl), 50 MG PO DAILY Pantoprazole (Protonix), 40 MG PO QPM Potassium Chloride Microencaps (Potassium Chloride Er), 20 MEQ PO BID Spironolactone (Aldactone), 12.5 MG PO QAM Tamsulosin HCl (Tamsulosin HCl), 0.4 MG PO HS Scheduled PRN Acetaminophen (Tylenol), 650 MG PO Q4 PRN for Pain Nitroglycerin (Nitrostat), 0.4 MG UT PRN PRN for Chest Pain Review of Systems ROS per HPI, all other systems reviewed and negative Physical Exam Vital Signs Date Time Temp Pulse Resp B/P Pulse Ox O2 Delivery O2 Flow Rate FiO2 11/28/16 13:12 91 20 150/78 98 11/28/16 13:03 91 20 150/79 99 Room Air 11/28/16 11:22 82 11/28/16 10:51 78 18 156/92 95 Room Air 11/28/16 10:40 36.8 92 18 156/92 94 Room Air 11/28/16 10:08 79 18 163/84 94 Room Air 11/28/16 08:41 36.8 99 22 148/79 95 Room Air 11/28/16 08:39 95 Room Air 11/28/16 08:35 89 General Appearance: no apparent distress Head: normocephalic Eyes: normal inspection ENT: hearing grossly normal Neck: supple, no JVD Respiratory/Chest: lungs clear, normal breath sounds, no respiratory distress Cardiovascular: regular rate, rhythm, no edema, normal peripheral pulses Abdomen/GI: normal bowel sounds, non tender, soft Extremities/Musculoskelatal: normal inspection, no calf tenderness Neurologic/Psych: no motor/sensory deficits, alert, + disoriented (initially states year as 2006, then corrects to 2017; otherwise A/O x 3 ), + pertinent finding (some mild word finding noted, no focal deficits on exam) Skin: normal color, warm/dry Diagnostics Laboratory Results Results Past 24 Hours Test 11/28/16 08:35 11/28/16 09:00 Range/Units Urine Color DK YELLOW Urine Appearance TURBID CLEAR Urine pH 5.0 4.5-7.5 Urine Specific [place] 1.017 1.000-1.030 Urine Protein TRACE NEG Urine Glucose (UA) NEG NEG Urine Ketones TRACE NEG Urine Occult Blood 2+ NEG Urine Nitrite NEG NEG Urine Bilirubin NEG NEG Urine Urobilinogen NEG NEG Urine Leukocyte Esterase LARGE NEG Urine WBC (Auto) >30 0-5 /hpf Urine RBC (Auto) 0-4 0-4 /hpf Urine Hyaline Casts (Auto) 1-5 0-5 /lpf Urine Epithelial Cells (Auto) >30 0-5 /lpf Urine Bacteria (Auto) 4+ NEG White Blood Count 9.58 4.8-10.8 K/uL Red Blood Count 4.59 4.7-6.1 M/uL Hemoglobin 14.7 14.0-18.0 g/dL Hematocrit 43.7 42-52 % Mean Corpuscular Volume 95.2 80-100 fL Mean Corpuscular Hemoglobin 32.0 25-34 pg Mean Corpuscular Hemoglobin Concent 33.6 32-36 g/dl Platelet Count 150 130-400 K/uL Mean Platelet Volume 11.6 7.4-10.4 fL Neutrophils (%) (Auto) 82.4 % Lymphocytes (%) (Auto) 10.6 % Monocytes (%) (Auto) 6.5 % Eosinophils (%) (Auto) 0.0 % Basophils (%) (Auto) 0.2 % Neutrophils # (Auto) 7.89 1.4-6.5 K/uL Lymphocytes # (Auto) 1.02 1.2-3.4 K/uL Monocytes # (Auto) 0.62 0.11-0.59 K/uL Eosinophils # (Auto) 0.00 0-0.5 K/uL Basophils # (Auto) 0.02 0-0.2 K/uL RDW Standard Deviation 49.9 36.4-46.3 fL RDW Coefficient of Variation 14.3 11.5-14.5 % Immature Granulocyte % (Auto) 0.3 % Immature Granulocyte # (Auto) 0.03 0.00-0.02 K/uL Prothrombin Time 13.4 9.0-12.0 SECONDS Prothromb Time International Ratio 1.2 0.9-1.1 Activated Partial Thromboplast Time 31.2 21.0-31.0 SECONDS Partial Thromboplastin Ratio 1.2 Sodium Level 141 136-145 mmol/L Potassium Level 3.8 3.5-5.1 mmol/L Chloride Level 106 98-107 mmol/L Carbon Dioxide Level 28 21-32 mmol/L Anion Gap 7.0 3-11 mmol/L Blood Urea Nitrogen 35 7-18 mg/dl Creatinine 1.20 0.60-1.40 mg/dl Est Creatinine Clear Calc Drug Dose 64.6 ml/min Estimated GFR () 69.1 Estimated GFR (Non- 59.6 BUN/Creatinine Ratio 29.5 10-20 Random Glucose 111 70-99 mg/dl Estimated Average Glucose 117 mg/dl Hemoglobin A1c 5.7 4.5-5.6 % Calcium Level 9.0 8.5-10.1 mg/dl Total Bilirubin 2.0 0.2-1 mg/dl Direct Bilirubin 0.9 0-0.2 mg/dl Aspartate Amino Transf (AST/SGOT) 33 15-37 U/L Alanine Aminotransferase (ALT/SGPT) 25 12-78 U/L Alkaline Phosphatase 37 45-117 U/L Troponin I 0.033 0-0.045 ng/ml Total Protein 7.0 6.4-8.2 gm/dl Albumin 3.3 3.4-5.0 gm/dl Microbiology Results 11/28/16 Urine Culture, Received Pending Diagnostic Radiology CT HEAD IMPRESSION: No acute intracranial findings CXR IMPRESSION: Stable mild elevation of the right hemidiaphragm. No acute findings. Impression Assessment and Plan ALTERED MENTAL STATUS, UTI - admit to tele - patient with history of waxing and waning confusion for the past few months, presenting today with acute worsening of his confusion; U/A in the ER suggests UTI - has been following with neurology recently for mild cognitive impairment, had MRI on 10/29 that showed age related changes - currently no focal deficits noted on exam, just some mild word finding - suspect patient's symptoms are due to a metabolic encephalopathy from UTI however patient high risk for CVA - has afib, but is not anticoagulated due to GI bleed and falls; he is on ASA and Plavix - neuro checks - could consider MRI if patient does not improve - case discussed with Kimberly Whaley PA-C (neuro) - input appreciated - s/p Rocephin in the ER, will continue with; adjust per culture results; no signs of sepsis - will check PVRs; no flank pain, low suspicion for kidney stone ATRIAL FIBRILLATION - rate controlled on metoprolol, will continue - not anticoagulated due to GI bleed and falls CAD - stable, no reports of chest pain - continue ASA, Plavix, beta herminia, and statin HTN - BP controlled, continue amlodipine, lisinopril, and metoprolol RIGHT SIDED CHF - appears euvolemic, continue diuretics TRIGEMINAL NEURALGIA - continue Tegretol BPH - continue home meds GOUT - continue home meds DVT PROPHYLAXIS - SCDs due to hx of GI bleed CODE STATUS - Patient is a full code as per my discussion with him. DISPO - In my clinical judgment this beneficiary meets acute admission criteria, established by [facility], that includes being hospitalized through two midnights. I have seen and evaluated the patient and discussed the case with the provider above. I agree with the assessment and plan as stated. The patient is not delirious on exam and appears to be improving clinically on the Rocephin. He is A& O to self only, and is up and walking around the room. Physical exam was unremarkable including no CVA tenderness, abdominal or flank pain and he remains afebrile and hemodynamically stable. DO [place] Level of Care Telemetry Advanced Directives Existing Living Will: No Existing Power of Renal Dietitian: No Resuscitation Status FULL RESUSCITATION VTE Prophylaxis VTE Risk Assessment Done? Y/N: Yes Risk Level: Moderate Given or contraindicated: SCD's, Contraindicated Physical Exam (per Admitting): General Appearance: no apparent distress Head: normocephalic Eyes: normal inspection ENT: hearing grossly normal Neck: supple, no JVD Respiratory/Chest: lungs clear, normal breath sounds, no respiratory distress Cardiovascular: regular rate, rhythm, no edema, normal peripheral pulses Abdomen/GI: normal bowel sounds, non tender, soft Extremities/Musculoskelatal: normal inspection, no calf tenderness Neurologic/Psych: no motor/sensory deficits, alert, + disoriented ( initially states year as 2006, then corrects to 2017; otherwise A/O x 3 ), + pertinent finding (some mild word finding noted, no focal deficits on exam) Skin: normal color, warm/dry Hospital Course ALTERED MENTAL STATUS Secondary to UTI - patient with history of waxing and waning confusion for the past few months, presenting today with acute worsening of his confusion; - has been following with neurology recently for mild cognitive impairment, had MRI on 10/29 that showed age related changes - suspect patient's symptoms are due to a metabolic encephalopathy from UTI -however patient high risk for CVA - has afib, but is not anticoagulated due to GI bleed and falls; he is on -ASA and Plavix - could consider MRI if patient does not improve - appreciate Neurology input -Declined Psychiatry evaluation now - s/p Rocephin in the ER and continuing -Urine Culture -E Cloi ,Sensitivity noted -Will start Cipro and continue for 7 days in total ATRIAL FIBRILLATION - rate controlled on metoprolol, will continue - not anticoagulated due to GI bleed and falls CAD - stable, no reports of chest pain - continue ASA, Plavix, beta herminia, and statin -no acute symptoms HTN - BP controlled, continue amlodipine, lisinopril, and metoprolol RIGHT SIDED CHF -chronic R sided CHF with preserved EF - appears euvolemic, continue diuretics TRIGEMINAL NEURALGIA - continue Tegretol -no acute attack BPH - continue home meds GOUT - continue home meds DVT PROPHYLAXIS - SCDs due to hx of GI bleed CODE STATUS - Patient is a full code as per my discussion with him. DISPO Will discharge today Total time spent on discharge = 35 minutes This includes examination of the patient, discharge planning, medication reconciliation, and communication with other providers. Discharge Instructions Date of Service November 30, 2016. Admission Reason for Admission: Confusion Discharge Discharge Diagnosis / Problem: UTI,Confusion-resolved Discharge Goals Goal(s): Prevent Disease Progression Activity Recommendations Activity Limitations: resume your previous activity . Instructions / Follow-Up Instructions / Follow-Up Your Doctor's office will call you for appointment Current Hospital Diet Patient's current hospital diet: AHA Diet (Heart Healthy) Discharge Diet Recommended Diet: AHA Diet (Heart Healthy) Pending Studies Studies pending at discharge: no Laboratory Results Hemoglobin A1c Test 11/28/16 09:00 Range/Units Estimated Average Glucose 117 mg/dl Hemoglobin A1c 5.7 H 4.5-5.6 % Lipid Panel Test 11/29/16 05:54 Range/Units Triglycerides Level 113 0-150 mg/dl Cholesterol Level 107 0-200 mg/dl HDL Cholesterol 32 mg/dl Cholesterol/HDL Ratio 3.3 LDL Cholesterol, Calculated 52 mg/dl Medical Emergencies . Who to Call and When: Medical Emergencies: If at any time you feel your situation is an emergency, please call 911 immediately. . Non-Emergent Contact Non-Emergency issues call your: Primary Care Provider . Past History Medical & Surgical History: (1) UTI (urinary tract infection) (2) Hypertension (3) Coronary artery disease (4) Atrial fibrillation (5) Dyslipidemia (6) History of peptic ulcer disease (7) Gout (8) Right-sided congestive heart failure (9) Sleep apnea . "Provider Documentation" section prepared by Tonia Ewing. . VTE Core Measure Inpt VTE Proph given/why not?: SCD's, Contraindicated <Electronically signed by Tonia Ewing M.D.> Additional Copies To Ashvin Ayala M.D. ([facility])
[2016-11-30] MEDS ORDERED: CIPROFLOXACIN 500 MG TAB PO SCH (21:00)
== END 2016-11-30 17:00 | disposition home or self-care (01) | DRG 689 ==
LOC: CANRESERV → ENRESERVDT → ENRESERVTM → EDSEX 08:32 → EDBD 08:32 → C.EDA 08:34 → C.MED 12:01 → EDBEDREQ 12:49 → EDBEDREQSVC 12:49
PROVIDERS: ADMIT Hospitalist; ATTEND Internal Medicine
DX: N39.0 Urinary tract infection, site not specified (principal); G93.41 Metabolic encephalopathy; I50.32 Chronic diastolic (congestive) heart failure; N40.0 Benign prostatic hyperplasia without lower urinary tract symptoms; I25.10 Atherosclerotic heart disease of native coronary artery without angina pectoris; G31.84 Mild cognitive impairment of uncertain or unknown etiology; I48.91 Unspecified atrial fibrillation; M10.9 Gout, unspecified; I11.0 Hypertensive heart disease with heart failure; E78.5 Hyperlipidemia, unspecified; K27.9 Peptic ulcer, site unspecified, unspecified as acute or chronic, without hemorrhage or perforation; G47.30 Sleep apnea, unspecified; G50.0 Trigeminal neuralgia; Z96.659 Presence of unspecified artificial knee joint; Z87.19 Personal history of other diseases of the digestive system; Z91.81 History of falling; Z79.899 Other long term (current) drug therapy; Z95.1 Presence of aortocoronary bypass graft; Z95.5 Presence of coronary angioplasty implant and graft; Z79.82 Long term (current) use of aspirin; Z79.02 Long term (current) use of antithrombotics/antiplatelets